=== PATIENT | female | born 1975 | race Caucasian/White ===

== ENCOUNTER → 2017-05-27 | Outpatient (CLI) | payer BC ==
--- NOTE | 2017-05-27 09:07 | XR ---
EXAMINATION TYPE: XR chest 2V DATE OF EXAM: 05/27/2017 COMPARISON: NONE HISTORY: Chest pain TECHNIQUE: Frontal and lateral views of the chest are obtained. FINDINGS: There is no focal air space opacity. No evidence for pneumothorax. No pleural effusion. The cardiac silhouette size is within normal limits. The osseous structures are grossly intact. IMPRESSION: 1. No acute cardiopulmonary process.
== END | disposition home or self-care (01) ==
LOC: RADXRMAIN 08:36
PROVIDERS: ATTEND Family Medicine
DX: R05 Cough (principal)
CPT/HCPCS: 71046

== ENCOUNTER → 2017-07-20 | Outpatient (CLI) | payer BC, OTHER ==
[2017-07-20 07:57] LABS: HCT 39.8 % (34.0-46.0); HGB 11.9 gm/dL (11.4-16.0); Hypochromasia Marked; MCHC 29.7 g/dL (31.0-37.0); MCV 77.3 fL (80.0-100.0); Mean Platelet Volume 7.5; Platelet Count 454 k/uL (150-450); RBC 5.16 m/uL (3.80-5.40); RDW 14.2 % (11.5-15.5); WBC 11.1 k/uL (3.8-10.6)
[2017-07-20 08:09] LABS: ALT 21 U/L (9-52); AST 20 U/L (14-36); Albumin 4.1 g/dL (3.5-5.0); Alkaline Phosphatase 64 U/L (38-126); Anion Gap 13 mmol/L; Blood Urea Nitrogen 15 mg/dL (7-17); Calcium 9.5 mg/dL (8.4-10.2); Carbon Dioxide 25 mmol/L (22-30); Chloride 105 mmol/L (98-107); Cholesterol 168 mg/dL (<200); Glucose 99 mg/dL (74-99); HDL Cholesterol 43 mg/dL (40-60); LDL Cholesterol,Calculated 105 mg/dL (0-99); Magnesium 1.9 mg/dL (1.6-2.3); Potassium 4.8 mmol/L (3.5-5.1); Sodium 143 mmol/L (137-145); Total Bilirubin 0.5 mg/dL (0.2-1.3); Total Protein 7.1 g/dL (6.3-8.2); Triglycerides 100 mg/dL (<150)
[2017-07-20 17:38] LABS: Folate, Serum 5.9 ng/mL; Vitamin D 25 Hydroxy 33.7 ng/mL (30.0-100.0)
[2017-07-22 06:48] LABS: Herpes simplex I and/or II IgM 0.48 INDEX (<=0.90); Herpes simplex IgG I Ab <0.01 (< or = 0.90); Herpes simplex IgG II Ab 0.08 (< or = 0.90)
== END | disposition home or self-care (01) ==
LOC: LABWHC1 07:28
PROVIDERS: ATTEND Nurse Practitioner Adult Health
DX: D64.9 Anemia, unspecified (principal); R05 Cough; R03.0 Elevated blood-pressure reading, without diagnosis of hypertension; N93.8 Other specified abnormal uterine and vaginal bleeding; N89.8 Other specified noninflammatory disorders of vagina; E83.42 Hypomagnesemia; R53.83 Other fatigue
CPT/HCPCS: 36415; 80053; 80061; 82306; 82607; 82746; 83735; 84443; 85027; 86694; 86695; 86696

== ENCOUNTER → 2017-12-02 | Outpatient (CLI) | payer BC, OTHER ==
--- NOTE | 2017-12-02 08:57 | XR ---
EXAMINATION TYPE: XR forearm RT, XR elbow complete RT DATE OF EXAM: 12/02/2017 CLINICAL HISTORY: pain TECHNIQUE: Frontal and lateral images of the right forearm are obtained. COMPARISON: None. FINDINGS: There is no acute fracture/dislocation evident. The joint spaces appear within normal limi ts. The overlying soft tissue appears unremarkable. IMPRESSION: There is no acute fracture or dislocation. ICD 10 NO FRACTURE, INITIAL EVALUATION EXAMINATION TYPE: XR forearm RT, XR elbow complete RT DATE OF EXAM: 12/02/2017 CLINICAL HISTORY: pain TECHNIQUE: Frontal, lateral and oblique images of the right elbow are obtained. COMPARISON: None. FINDINGS: There is no acute fracture/dislocation evident of the elbow. No abnormal fat pad signs ar e seen. The overlying soft tissue appears unremarkable. IMPRESSION: There is no acute fracture or dislocation of the elbow. ICD 10 NO FRACTURE, INITIAL EVALUATION
== END | disposition home or self-care (01) ==
LOC: RADXRMAIN 08:17
PROVIDERS: ATTEND Nurse Practitioner Adult Health
DX: S56.211 Strain of other flexor muscle, fascia and tendon at forearm level, right arm (principal)

== ENCOUNTER → 2018-01-06 | Outpatient (CLI) | payer BC, OTHER ==
--- NOTE | 2018-01-06 14:26 | MR ---
EXAMINATION TYPE: MR elbow RT wo con DATE OF EXAM: 01/06/2018 COMPARISON: Right elbow and forearm x-ray December 02, 2017 HISTORY: Rt. elbow pain, strain injury flexor forearm per order. Standard multiplanar, multisequence MRI departmental protocol Multiplanar, multisequence images of the right elbow were acquired. FINDINGS: Some heterogeneity consistent with red marrow reconversion is present. No suspicious edema is seen. Some mild spurring at ulnohumeral articulation is present. No suspicious joint effusion is s een. No cortical destruction is seen. Capitellum is intact without suspicious signal. There is no suspicious fluid signal seen in the lateral or medial upper condyle of the distal humerus at origins of the extensor and flexor tendons respectively. Tendons are intact. Muscle bulk is prese rved. Distal triceps tendon is intact. Distal biceps tendon is intact to proximal radial attachment. No jeannine picious muscular edema is seen. No worrisome focal fluid collection is noted. Intrinsic ligaments are felt intact. IMPRESSION: No suspicious edema identified to account for patient's symptoms.
== END | disposition home or self-care (01) ==
LOC: RADMRIMAIN 07:07
PROVIDERS: ATTEND Internal Medicine
DX: S56.211 Strain of other flexor muscle, fascia and tendon at forearm level, right arm (principal)

== ENCOUNTER 2018-02-27 01:09 | Emergency (ER) | payer BC, OTHER ==
[2018-02-27 01:19] VITALS: RESP 18; TEMP 98.1
[2018-02-27 02:38] VITALS: PULSE 81
--- NOTE | 2018-02-27 02:47 | ED ---
Abdominal Pain HPI - General Chief Complaint: Abdominal Pain Stated Complaint: bowel issue Time Seen by Provider: 02/27/18 01:21 Source: patient Mode of arrival: ambulatory Limitations: no limitations - History of Present Illness Initial Comments: This patient is a 43-year-old woman presenting to be evaluated for months of perianal pains. She states she has seen her physician also for these pains. The patient believes she is having issues related to constipation or perhaps an obstruction. She states that the pain feels like spasms and is somewhat intermittent. She states it can happen at any time of the day. When it comes on a can last for minutes to an hour. She states that it makes her feels if she has to have a bowel movement but is not able to pass any stool other than small lumps of stool. She has tried using various laxatives, stool softeners and lactulose. Patient also has had some intermittent lower abdominal cramping in the bilateral lower quadrants. She is not having any other abdominal pain. She has not had fever or chills. No nausea or vomiting. No change in urination. She states that she is having her menstrual cycle now and it seems about as usual for her. MD Complaint: abdominal pain, other (Perianal pain) Onset/Timin -: month(s) Location: LLQ, RLQ Radiation: none Migration to: no migration Severity: severe Quality: other (Spasms) Consistency: intermittent Improves With: nothing Worsens With: nothing - Related Data Previous Rx's Medication Instructions Recorded Hydrocortisone/Pramoxine 1 applic RECTAL TID #1 bottle 02/27/18 [Proctofoam-Hc 1%-1% Foam] Allergies Allergy/AdvReac Type Severity Reaction Status Date / Time No Known Allergies Allergy Verified 02/27/18 01:19 Review of Systems ROS Statement: Those systems with pertinent positive or pertinent negative responses have been documented in the HPI. ROS Other: All systems not noted in ROS Statement are negative. Constitutional: Denies: fever, chills Respiratory: Denies: cough, dyspnea Cardiovascular: Denies: chest pain, palpitations, edema Gastrointestinal: Reports: abdominal pain, constipation. Denies: nausea, vomiting, diarrhea, hematemesis, melena, hematochezia Genitourinary: Denies: dysuria, hematuria, discharge, abnormal menses Musculoskeletal: Denies: back pain Skin: Denies: rash Neurological: Denies: headache, weakness, numbness Past Medical History Past Medical History: No Reported History History of Any Multi-Drug Resistant Organisms: None Reported Past Surgical History: Tubal Ligation Past Psychological History: No Psychological Hx Reported Smoking Status: Current every day smoker Past Alcohol Use History: None Reported Past Drug Use History: None Reported General Exam Limitations: no limitations General appearance: alert, in no apparent distress, obese Head exam: Present: atraumatic, normocephalic Eye exam: Present: normal appearance. Absent: scleral icterus, conjunctival injection ENT exam: Present: normal oropharynx Respiratory exam: Present: normal lung sounds bilaterally. Absent: respiratory distress, wheezes, rales, rhonchi, stridor Cardiovascular Exam: Present: regular rate, normal rhythm, normal heart sounds. Absent: systolic murmur, diastolic murmur, rubs, gallop GI/Abdominal exam: Present: soft, normal bowel sounds. Absent: distended, tenderness, guarding, rebound, rigid, mass, pulsatile mass, hernia Rectal exam: Present: normal inspection, other (There is a small anal fissure. There is spasm of the anus, however when the patient was able to relax, there was no evident stricture, or any mass.). Absent: fecal impaction, hemorrhoids, mass, tenderness Extremities exam: Present: normal inspection, normal capillary refill. Absent: pedal edema, calf tenderness Back exam: Present: normal inspection. Absent: CVA tenderness (R), CVA tenderness (L) Neurological exam: Present: alert Skin exam: Present: warm, dry, intact, normal color. Absent: rash Course Vital Signs 02/27/18 02/27/18 02/27/18 01:14 02:37 03:28 Temperature 98.1 F Pulse Rate 86 81 81 Respiratory 18 18 18 Rate Blood Pressure 155/84 140/106 145/84 O2 Sat by Pulse 98 99 100 Oximetry Medical Decision Making - Lab Data Result diagrams: 02/27/18 02:50 02/27/18 02:50 Lab Results 02/27/18 02/27/18 02/27/18 Range/Units 02:50 02:50 02:54 WBC 10.2 (3.8-10.6) k/uL RBC 4.78 (3.80-5.40) m/uL Hgb 8.8 L (11.4-16.0) gm/dL Hct 31.2 L (34.0-46.0) % MCV 65.3 L (80.0-100.0) fL MCH 18.4 L (25.0-35.0) pg MCHC 28.1 L (31.0-37.0) g/dL RDW 16.3 H (11.5-15.5) % Plt Count 493 H (150-450) k/uL Neutrophils % 58 % Lymphocytes % 29 % Monocytes % 5 % Eosinophils % 6 % Basophils % 1 % Neutrophils # 5.9 (1.3-7.7) k/uL Lymphocytes # 2.9 (1.0-4.8) k/uL Monocytes # 0.5 (0-1.0) k/uL Eosinophils # 0.6 (0-0.7) k/uL Basophils # 0.1 (0-0.2) k/uL Hypochromasia Marked Anisocytosis Slight Microcytosis Marked Sodium 139 (137-145) mmol/L Potassium 4.3 (3.5-5.1) mmol/L Chloride 107 (98-107) mmol/L Carbon Dioxide 25 (22-30) mmol/L Anion Gap 7 mmol/L BUN 7 (7-17) mg/dL Creatinine 0.61 (0.52-1.04) mg/dL Est GFR (CKD-EPI)AfAm >90 (>60 ml/min/1.73 sqM) Est GFR (CKD-EPI)NonAf >90 (>60 ml/min/1.73 sqM) Glucose 108 H (74-99) mg/dL Calcium 9.2 (8.4-10.2) mg/dL Total Bilirubin 0.3 (0.2-1.3) mg/dL AST 18 (14-36) U/L ALT 29 (9-52) U/L Alkaline Phosphatase 66 (38-126) U/L Total Protein 6.9 (6.3-8.2) g/dL Albumin 3.7 (3.5-5.0) g/dL Amylase 51 (30-110) U/L Lipase 127 (23-300) U/L Urine Color Yellow Urine Appearance Clear (Clear) Urine pH 6.0 (5.0-8.0) Ur Specific [place] 1.011 (1.001-1.035) Urine Protein Negative (Negative) Urine Glucose (UA) Negative (Negative) Urine Ketones Negative (Negative) Urine Blood Small H (Negative) Urine Nitrite Negative (Negative) Urine Bilirubin Negative (Negative) Urine Urobilinogen <2.0 (<2.0) mg/dL Ur Leukocyte Esterase Negative (Negative) Urine RBC <1 (0-5) /hpf Urine WBC 2 (0-5) /hpf Ur Squamous Epith Cells 2 (0-4) /hpf Urine Bacteria Rare H (None) /hpf Urine Mucus Occasional H (None) /hpf Disposition Clinical Impression: Anal fissure, Anal sphincter spasm Disposition: HOME SELF-CARE Condition: Good Instructions: Anal Fissure (ED) Prescriptions: Hydrocortisone/Pramoxine [Proctofoam-Hc 1%-1% Foam] 1 applic RECTAL TID #1 bottle Is patient prescribed a controlled substance at d/c from ED?: No Referrals: Lino Rose MD [Primary Care Provider] - 1-2 days Nicolas Flores MD [STAFF PHYSICIAN] - 1-2 days
--- NOTE | 2018-02-27 02:48 | XR ---
EXAMINATION TYPE: XR KUB DATE OF EXAM: 02/27/2018 COMPARISON: NONE HISTORY: Abdominal pain TECHNIQUE: 2 views upright FINDINGS: There is no sign of intestinal obstruction or pneumoperitoneum. Fecal pattern is normal. Th ere are clips from tubal ligation. There are no pathologic calcifications over the kidneys. Lung base s are clear. IMPRESSION: Nonacute abdomen.
[2018-02-27 03:17] LABS: Anisocytosis Slight; Basophils # (A) 0.1 k/uL (0-0.2); Basophils % (A) 1 %; Eosinophils # (A) 0.6 k/uL (0-0.7); Eosinophils % (A) 6 %; HCT 31.2 % (34.0-46.0); HGB 8.8 gm/dL (11.4-16.0); Hypochromasia Marked; Lymphocytes # (A) 2.9 k/uL (1.0-4.8); Lymphocytes % (A) 29 %; MCH 18.4 pg (25.0-35.0); MCHC 28.1 g/dL (31.0-37.0); MCV 65.3 fL (80.0-100.0); Mean Platelet Volume 6.1; Microcytosis Marked; Monocytes # (A) 0.5 k/uL (0-1.0); Monocytes % (A) 5 %; Neutrophils # (A) 5.9 k/uL (1.3-7.7); Neutrophils % (A) 58 %; Platelet Count 493 k/uL (150-450); RBC 4.78 m/uL (3.80-5.40); RDW 16.3 % (11.5-15.5); WBC 10.2 k/uL (3.8-10.6)
[2018-02-27 03:18] LABS: ALT 29 U/L (9-52); AST 18 U/L (14-36); Albumin 3.7 g/dL (3.5-5.0); Alkaline Phosphatase 66 U/L (38-126); Amylase 51 U/L (30-110); Anion Gap 7 mmol/L; Blood Urea Nitrogen 7 mg/dL (7-17); Calcium 9.2 mg/dL (8.4-10.2); Carbon Dioxide 25 mmol/L (22-30); Chloride 107 mmol/L (98-107); Glucose 108 mg/dL (74-99); Lipase 127 U/L (23-300); Potassium 4.3 mmol/L (3.5-5.1); Sodium 139 mmol/L (137-145); Total Bilirubin 0.3 mg/dL (0.2-1.3); Total Protein 6.9 g/dL (6.3-8.2)
[2018-02-27 03:22] LABS: Appearance,Urine Clear (Clear); Bacteria,Urine Rare /hpf; Bilirubin,Urine Negative (Negative); Blood,Urine Small (Negative); Color,Urine Yellow; Glucose,Urine (UA) Negative (Negative); Ketones,Urine Negative (Negative); Leukocyte Esterase,Urine Negative (Negative); Mucus,Urine Occasional /hpf; Nitrite,Urine Negative (Negative); Protein,Urine Negative (Negative); RBC,Urine <1 /hpf (0-5); Specific Gravity,Urine 1.011 (1.001-1.035); Squamous Epithelial Cell,Urine 2 /hpf (0-4); Urobilinogen,Urine <2.0 mg/dL (<2.0); WBC,Urine 2 /hpf (0-5)
[2018-02-27 03:29] VITALS: BP 145/84
== END 2018-02-27 03:54 | disposition home or self-care (01) ==
LOC: SUPCPDRO 01:09 → EC 01:09
DX: K60.2 Anal fissure, unspecified (principal); K59.4 Anal spasm; R10.31 Right lower quadrant pain; R10.32 Left lower quadrant pain; F17.200 Nicotine dependence, unspecified, uncomplicated
CPT/HCPCS: 36415; 74018; 80053; 81001; 82150; 83690; 85025; 99284

== ENCOUNTER 2018-06-24 05:40 | Inpatient (IN) | payer OTHER ==
--- NOTE | 2018-06-24 05:45 | ED ---
General Adult HPI - General Stated complaint: Abd pain Time Seen by Provider: 06/24/18 05:45 - History of Present Illness Initial comments: Dayana is a 43-year-old female who presents to emergency department today via EMS for evaluation of sudden onset of bilateral lower quadrant abdominal pain. Patient reports that this morning she was straining to have a bowel movement, she was unable to have a bowel movement when she was overcome with abdominal p ain. She reports the pain was so severe she felt the ground and had to crawl to the living room where she called 911. Patient reports she is dull with intermittent rectal and abdominal pain for a number of months, she reports that his been diagnosed with rectal fissures in the past and also has chronic heavy vaginal bleeding and is scheduled to have a hysterectomy on August 31 of this year due to chronic anemia due to menstrual bleeding. Patient reports that this morning the pain is significantly more severe than usual and became unbearable which prompted her to come to the ER for evaluation. Pain is not associated with any nausea or vomiting. The pain was sudden in onset occurred while having a bowel movement. She reports her last bowel movement was 2-3 days ago was normal in color, consistency. - Related Data Home Medications Medication Instructions Recorded Confirmed Biotin 5 mg PO DAILY 05/15/18 06/24/18 Meloxicam 15 mg PO DAILY 05/15/18 06/24/18 Ibuprofen [Motrin] 800 mg PO Q8H 06/24/18 06/24/18 Allergies Allergy/AdvReac Type Severity Reaction Status Date / Time No Known Allergies Allergy Verified 06/24/18 07:30 Review of Systems ROS Statement: Those systems with pertinent positive or pertinent negative responses have been documented in the HPI. ROS Other: All systems not noted in ROS Statement are negative. Past Medical History Past Medical History: No Reported History History of Any Multi-Drug Resistant Organisms: None Reported Past Surgical History: Tubal Ligation Smoking Status: Current every day smoker General Exam - General Exam Comments Initial Comments: Physical Exam GENERAL: Patient appears uncomfortable HENT: Normocephalic, Atraumatic. EYES: PERRL, EOMI PULMONARY: Unlabored respirations. No audible rales rhonchi or wheezing was noted. CARDIOVASCULAR: There is a regular rate and rhythm without any murmurs gallops or rubs. ABDOMEN: Soft NABS tenderness to palpation in all quadrants, most prominent in bilateral lower quadrants SKIN: Skin is clear with no lesions or rashes and otherwise unremarkable. : Deferred NEUROLOGIC: Patient is alert and oriented x3. Moving all extremities spontaneously MUSCULOSKELETAL: Normal extremities with adequate strength and full range of motion. No lower extremity swelling or edema. No calf tenderness. PSYCHIATRIC: Normal psychiatric evaluation. Limitations: no limitations Course Vital Signs 06/24/18 05:44 Temperature 98.2 F Pulse Rate 83 Respiratory 20 Rate Blood Pressure 122/79 O2 Sat by Pulse 98 Oximetry Medical Decision Making - Medical Decision Making The patient was seen and evaluated history is obtained from the patient and re view of medical record for patient presented with acute abdominal pain relieved somewhat with IV fentanyl and route to the hospital. Physical exam revealed diffuse abdominal tenderness without peritoneal signs rectal exam was unremarkable signs of rectal fissure or rectal prolapse Labs and imaging were ordered Labs with significant abnormalities including profound leukocytosis, hemoglobin is improving to 9.5 CT scan findings have multiple significant abnormalities as noted in the report. There is concern for possible with metastatic disease as well as acute colitis. IV antibiotics were ordered for treatment of colitis Computed tomography scan results were discussed with the patient I advised the patient that she will need to undergo further testing for definitive diagnosis she will be admitted to the hospital for pain management IV antibiotics and further evaluation. Patient expressed understanding of this. Patient care was discussed with Dr. Bah of the [facility] who accepts admission. - Lab Data Result diagrams: 06/24/18 05:53 06/24/18 05:53 Lab Results 06/24/18 06/24/18 Range/Units 05:53 05:53 WBC 21.4 H (3.8-10.6) k/uL RBC 4.17 (3.80-5.40) m/uL Hgb 9.5 L (11.4-16.0) gm/dL Hct 31.3 L (34.0-46.0) % MCV 75.1 L D (80.0-100.0) fL MCH 22.7 L (25.0-35.0) pg MCHC 30.2 L (31.0-37.0) g/dL RDW 23.8 H (11.5-15.5) % Plt Count 708 H (150-450) k/uL Neutrophils % 71 % Lymphocytes % 22 % Monocytes % 4 % Eosinophils % 1 % Basophils % 0 % Neutrophils # 15.1 H (1.3-7.7) k/uL Lymphocytes # 4.6 (1.0-4.8) k/uL Monocytes # 0.9 (0-1.0) k/uL Eosinophils # 0.3 (0-0.7) k/uL Basophils # 0.1 (0-0.2) k/uL Hypochromasia Marked Anisocytosis Moderate Microcytosis Marked Sodium 135 L (137-145) mmol/L Potassium 5.4 H (3.5-5.1) mmol/L Chloride 102 (98-107) mmol/L Carbon Dioxide 23 (22-30) mmol/L Anion Gap 10 mmol/L BUN 13 (7-17) mg/dL Creatinine 1.07 H (0.52-1.04) mg/dL Est GFR (CKD-EPI)AfAm 73 (>60 ml/min/1.73 sqM) Est GFR (CKD-EPI)NonAf 64 (>60 ml/min/1.73 sqM) Glucose 136 H (74-99) mg/dL Calcium 9.2 (8.4-10.2) mg/dL Total Bilirubin 0.6 (0.2-1.3) mg/dL AST 20 (14-36) U/L ALT 27 (9-52) U/L Alkaline Phosphatase 96 (38-126) U/L Total Protein 6.6 (6.3-8.2) g/dL Albumin 3.2 L (3.5-5.0) g/dL Amylase <30 L (30-110) U/L Lipase 45 (23-300) U/L Disposition Clinical Impression: Abdominal pain, Colitis, Leukocytosis, Chronic anemia Disposition: ADMITTED IP TO THIS [facility] Condition: Serious Is patient prescribed a controlled substance at d/c from ED?: No Referrals: Lino Rose MD [Primary Care Provider] - 1-2 days
[2018-06-24] MEDS ORDERED: SODIUM CHLORIDE 0.9% 1,000 ML IV STA (05:57)
[2018-06-24 06:16] LABS: Anisocytosis Moderate; Basophils # (A) 0.1 k/uL (0-0.2); Basophils % (A) 0 %; Eosinophils # (A) 0.3 k/uL (0-0.7); Eosinophils % (A) 1 %; HCT 31.3 % (34.0-46.0); HGB 9.5 gm/dL (11.4-16.0); Hypochromasia Marked; Lymphocytes # (A) 4.6 k/uL (1.0-4.8); Lymphocytes % (A) 22 %; MCH 22.7 pg (25.0-35.0); MCHC 30.2 g/dL (31.0-37.0); Mean Platelet Volume 7.2; Microcytosis Marked; Monocytes # (A) 0.9 k/uL (0-1.0); Monocytes % (A) 4 %; Neutrophils # (A) 15.1 k/uL (1.3-7.7); Neutrophils % (A) 71 %; Platelet Count 708 k/uL (150-450); RBC 4.17 m/uL (3.80-5.40); RDW 23.8 % (11.5-15.5); WBC 21.4 k/uL (3.8-10.6)
[2018-06-24 06:24] LABS: Albumin 3.2 g/dL (3.5-5.0); Anion Gap 10 mmol/L; Calcium 9.2 mg/dL (8.4-10.2); Carbon Dioxide 23 mmol/L (22-30); Chloride 102 mmol/L (98-107); Glucose 136 mg/dL (74-99); Lipase 45 U/L (23-300); Sodium 135 mmol/L (137-145); Total Bilirubin 0.6 mg/dL (0.2-1.3); Total Protein 6.6 g/dL (6.3-8.2)
[2018-06-24 06:27] LABS: ALT 27 U/L (9-52); AST 20 U/L (14-36); Alkaline Phosphatase 96 U/L (38-126); Blood Urea Nitrogen 13 mg/dL (7-17); Potassium 5.4 mmol/L (3.5-5.1)
[2018-06-24 06:28] LABS: Amylase <30 U/L (30-110)
[2018-06-24 06:30] LABS: MCV 75.1 fL (80.0-100.0)
[2018-06-24] MEDS ORDERED: MORPHINE SULFATE 4 MG/ML SYRINGE IVP STA (06:57)
[2018-06-24] MEDS ORDERED: metroNIDAZOLE-NS PMX 500 MG in SALINE 1 100ML.BAG IVPB STA (07:16)
--- NOTE | 2018-06-24 07:19 | CT ---
EXAM: CT Abdomen and Pelvis With Intravenous Contrast CLINICAL HISTORY: abdominal pain TECHNIQUE: Axial computed tomography images of the abdomen and pelvis with intravenous contrast. DLP is 1072.5 mGy-cm. This CT exam was performed using one or more of the following dose reduction techniques: automated exposure control, adjustment of the mA and/or kV according to patient size, and/or use of iterative reconstruction technique. COMPARISON: No relevant prior studies available. FINDINGS: Lung bases: Unremarkable. No mass. No consolidation. ABDOMEN: Liver: There is an indeterminate hypoattenuating structure in the superior segment of the right lobe of the liver (segment 7) measuring 2.6 x 2.8 x 2.3 cm without significant alteration in appearance on delayed phase imaging. Gallbladder and bile ducts: Unremarkable. No calcified stones. No ductal dilation. Pancreas: Unremarkable. No mass. No ductal dilation. Spleen: Unremarkable. No splenomegaly. Adrenals: Unremarkable. No mass. Kidneys and ureters: There is mild left hydroureteronephrosis with distention of the ureter to the level of the left pelvic wall mass. Stomach and bowel: There is abnormal mucosal thickening of the sigmoid colon with a somewhat enhancing eccentric component in the right mid pelvis (series 201; images 70-75). There is some mucosal prominence of several small bowel loops with some mesenteric edema and regional fluid in the mid to inferior abdomen. This is presumably enteritis from free fluid. No high-grade bowel obstruction is identified at this time. PELVIS: Appendix: No findings to suggest acute appendicitis. Bladder: Unremarkable. No mass. Reproductive: Postsurgical changes consistent with prior tubal ligation. ABDOMEN and PELVIS: Intraperitoneal space: There is a soft tissue density extending superiorly from the abnormal sigmoid colon to involve the adjacent distal mesentery (series 201; images 56-64). The soft tissue mass measures approximately 2.6 x 3.5 x 5 cm. There is a small amount of free fluid in the pelvis which is not to be reactive. Retroperitoneal space: There is heterogeneous abnormal soft tissue density involving the left lateral extraperitoneal pelvic wall which displaces the uterus anteriorly and the distal rectosigmoid colon to the right and encases the regional lateral pelvic vasculature (series 201; images 70-84) measuring approximately 5.6 x 4.8 x 5.7 cm. Bones/joints: No acute fracture. No dislocation. Soft tissues: Overlying soft tissues are unremarkable.. Vasculature: The left external iliac artery is adjacent to but does not appear to be encased by the soft tissue mass.. Lymph nodes: Nonspecific left periaortic lymph nodes are noted measuring up to 8 mm in short axis diameter. There is an enlarged lymph node posterior to the left external iliac artery measuring 13 mm in short axis diameter. IMPRESSION: 1. There is abnormal mucosal thickening of the sigmoid colon with a somewhat enhancing eccentric component in the right mid pelvis. This may represent inflammatory or infectious colitis. However, findings are concerning for an underlying colonic mass lesion. Further evaluation with nonemergent endoscopic evaluation should be considered , as clinically appropriate. 2. There is a soft tissue density extending superiorly from the abnormal sigmoid colon to involve the adjacent distal mesentery. The soft tissue mass measures approximately 2.6 x 3.5 x 5 cm. Primary consideration is metastatic extension of a colonic mass to involve the distal mesentery. 3. There is heterogeneous abnormal soft tissue density involving the left lateral extraperitoneal pelvic wall which displaces the uterus anteriorly and the distal rectosigmoid colon to the right and encases the regional lateral pelvic vasculature measuring approximately 5.6 x 4.8 x 5. 7 cm. Primary consideration is slightly necrotic pelvic metastatic lymphadenopathy. The mass lies immediately posterior to the left adnexa. Differential consideration includes primary colonic mass with pelvic lymphadenopathy or, less likely, pelvic metastatic lymphadenopathy from left ovarian source with involvement of the adjacent colon and distal mesentery. 4. There is mild left hydroureteronephrosis with distention of the ureter to the level of the left pelvic wall mass. This is presumed related from mass effect upon the left ureter. 5. There is an indeterminate hypoattenuating structure in the superior segment of the right lobe of the liver (segment 7) measuring 2.6 x 2.8 x 2.3 cm without significant alteration in appearance on delayed phase imaging. This may represent an atypical hemangioma. However, the diagnosis of exclusion is metastatic disease from the pelvic mass.
[2018-06-24] MEDS ORDERED: NALOXONE 0.4 MG/ML 1 ML VIAL IV PRN (07:47)
[2018-06-24] MEDS: MORPHINE SULFATE 4 MG/ML SYRINGE IV PRN (08:41)
[2018-06-24] MEDS: HYDROmorphone 0.5 MG/0.5 ML SYRINGE IVP PRN ×4 (11:40→21:42)
[2018-06-24] MEDS ORDERED: BISACODYL 10 MG SUPP RECTAL STA (12:01)
[2018-06-24] MEDS ORDERED: INSULIN REGULAR 100 UNIT/ML VIAL IV ONE ×2 (12:03→22:30)
[2018-06-24] MEDS ORDERED: DEXTROSE 50% SYRINGE 50 ML IVP STA ×2 (12:03→22:30)
[2018-06-24 12:15] LABS: Appearance,Urine Clear (Clear); Bilirubin,Urine Negative (Negative); Blood,Urine Negative (Negative); Color,Urine Yellow; Glucose,Urine (UA) Negative (Negative); Ketones,Urine Trace (Negative); Leukocyte Esterase,Urine Negative (Negative); Mucus,Urine Rare /hpf; Nitrite,Urine Negative (Negative); Protein,Urine 1+ (Negative); Squamous Epithelial Cell,Urine 2 /hpf (0-4); Urobilinogen,Urine <2.0 mg/dL (<2.0); WBC,Urine 6 /hpf (0-5)
[2018-06-24 12:17] LABS: Specific Gravity,Urine >1.050 (1.001-1.035)
--- NOTE | 2018-06-24 12:55 | XR ---
EXAMINATION TYPE: XR abdomen acute w cxr , ONE VIEW DATE OF EXAM ORDERED: 06/24/2018 HISTORY: evaluate for any air under diaphragm, . COMPARISON: None. FINDINGS: There is a questionable 8 mm nodule in the right upper lobe. There is atelectatic change p resent at the lung bases. The heart is mildly enlarged. Pleural spaces are clear. No definite air is seen under the diaphragm. IMPRESSION: 1. NO FREE AIR IDENTIFIED. 2. MILD CARDIOMEGALY. 3. BIBASILAR AIRSPACE DISEASE. 4. QUESTIONABLE RIGHT-SIDED PULMONARY NODULE.
[2018-06-24 13:47] LABS: Amylase <30 U/L (30-110); LDH 438 U/L (313-618); Lipase 21 U/L (23-300)
[2018-06-24] MEDS: SODIUM CHLORIDE 0.9% 1,000 ML IV SCH ×2 (14:37→14:40)
[2018-06-24] MEDS: PANTOPRAZOLE 40 MG TABLET PO SCH ×2 (14:40→16:59)
--- NOTE | 2018-06-24 15:18 | P.HPIM ---
History of Present Illness H&P Date: 06/24/18 Chief Complaint: lower abd pain 43-year-old female with no significant past medical history. Patient presented to the ER via ambulance today due to sudden onset worsening of lower abdominal pain. Patient reported that she woke up this morning went to the bathroom due to raymundo ving an urge to pass a bowel movement with lower abdominal pain however while she is on the toilet she had a severe attack of lower abdominal sharp pain 10 out of 10 in severity bilateral lower quadrant radiating to the rest of the belly no associated nausea or vomiting and then she fell off the toilet and controlled asking for help due to severe pain and called ambulance and brought to the hospital. She reports long history of off and on lower abdominal pain which has been going on for 6 months prior to that she's been having constipation over the past year she passes bowel movements once to twice a week only when she drinks prune juice. She tried everything over the son for constipation and nothing helped one-time she tried to get Fleet enema from [id number] and that barely helped. She also reports 100 pound weight loss over the past 2 years. She has been following up with GI service and [facility] for anemia and possibility of uterine fibroids. Patient reports vaginal bleeding and bloody bowel movements over the past 1 month which was thought to be due to uterine fibroids and side effects of Mobic. For which patient's she has been receiving iron infusions for severe anemia. Otherwise patient denies any fevers or chills denies any nausea or vomiting. She denies any chest pain or trouble breathing however today she is reporting new onset lower rib pain along with a diffused abdominal pain. Patient doesn't take any medications at home except Mobic and ibuprofen for lower abdominal pain. In the emergency department computed tomography scan of the abdomen was performed which showed multiple abdominal masses related to the colon with suspicion of malignancy and metastases to the liver. And possible colitis. Chest x-ray showed suspicion of pulmonary nodule. Please refer to CAT scan report for full results. Labs reflected acute kidney injury with hyperkalemia elevated white count and microcytic anemia Review of Systems Pertinent positives as noted in HPI. All other systems were reviewed and are negative Past Medical History Past Medical History: No Reported History Additional Past Medical History / Comment(s): microcytic anemia History of Any Multi-Drug Resistant Organisms: None Reported Past Surgical History: Tubal Ligation Smoking Status: Current every day smoker - Past Family History Mother Family Medical History: Congestive Heart Failure (CHF), Diabetes Mellitus Father Family Medical History: Diabetes Mellitus Additional Family Medical History / Comment(s): lung cancer in aunt, who is a smoker Medications and Allergies Home Medications Medication Instructions Recorded Confirmed Type Biotin 5 mg PO DAILY 05/15/18 06/24/18 History Meloxicam 15 mg PO DAILY 05/15/18 06/24/18 History Ibuprofen [Motrin] 800 mg PO Q8H 06/24/18 06/24/18 History Allergies Allergy/AdvReac Type Severity Reaction Status Date / Time No Known Allergies Allergy Verified 06/24/18 07:30 Physical Exam Vitals: Vital Signs Temp Pulse Resp BP Pulse Ox 06/24/18 08:07 98.1 F 70 16 119/70 98 06/24/18 05:44 98.2 F 83 20 122/79 98 Intake and Output 06/23/18 06/24/18 06/24/18 22:59 06:59 14:59 Other: Weight 87.09 kg Constitutional: Patient in mild to moderate distress from lower abdominal pain , conversant, cooperative Eyes: Anicteric sclerae, moist conjunctiva, no lid-lag Pupils equal round reactive to light ENMT: NC/AT Oropharynx clear, no erythema, exudates Neck: Supple, FROM, no masses, or JVD No carotid bruits No thyromegaly Lungs: Clear to auscultation Clear to percussion Normal respiratory effort, no accessory muscle use Cardiovascular: Heart regular in rate and rhythm, No murmurs, gallops, or rubs No peripheral edema Abdominal: Abdomen rigid due to voluntary guarding especially on the lower part of the belly, tenderness diffusely no rebound tenderness Bowel sounds sluggish No palpable hepatomegaly, or splenomegaly No palpable superficial mass No abdominal wall hernia noted Skin: Normal temperature, tone, texture, turgor No induration No subcutaneous nodules No rash, lesions No ulcers Extremities: No digital cyanosis No clubbing Pedal pulses intact and symmetrical Radial pulses intact and symmetrical No calf tenderness Psychiatric: Alert and oriented to person, place and time Appropriate affect fair judgment Neuro Muscles Strength 5/5 in all 4 extremities Sensation to light touch grossly present throughout Cranial nerves II-XII grossly intact No focal sensory deficits Lymphatics: no palpable cervical or supraclavicular , or inguinal lymph nodes Results CBC & Chem 7: 06/24/18 05:53 06/24/18 05:53 Labs: Abnormal Lab Results - Last 24 Hours (Table) 06/24/18 06/24/18 Range/Units 05:53 05:53 WBC 21.4 H (3.8-10.6) k/uL Hgb 9.5 L (11.4-16.0) gm/dL Hct 31.3 L (34.0-46.0) % MCV 75.1 L D (80.0-100.0) fL MCH 22.7 L (25.0-35.0) pg MCHC 30.2 L (31.0-37.0) g/dL RDW 23.8 H (11.5-15.5) % Plt Count 708 H (150-450) k/uL Neutrophils # 15.1 H (1.3-7.7) k/uL Sodium 135 L (137-145) mmol/L Potassium 5.4 H (3.5-5.1) mmol/L Creatinine 1.07 H (0.52-1.04) mg/dL Glucose 136 H (74-99) mg/dL Albumin 3.2 L (3.5-5.0) g/dL Amylase <30 L (30-110) U/L Assessment and Plan Assessment: 43-year-old female with no significant past medical history except for microcytic anemia admitted as inpatient with anticipated length of stay more than 48 hours due to severe sudden onset worsening of her lower abdominal pain CAT scan showed multiple abdominal masses with possible metastases to the liver suspicious for malignancy. Labs showed microcystic anemia. Patient admitted for further evaluation and care, and pain control. Severe intractable abdominal pain due to the following , Colitis, mesentery mass lesion, Left lateral extraperitoneal pelvic mass with mass effect over the uterus distal rectosigmoid with possible necrotic pelvic metastasis lymphadenopathy, masses immediately behind the left and Anexsia Plan: severe intractable abd pain due to Differential diagnosis so far primary colonic mass with pelvic lymphadenopathy versus pelvic metastatic lymphadenopathy from left ovarian cancer with involvement of adjacent colon and distal mesentery, Hypoattenuating lesions in the liver which may represent metastases to the liver versus hemangioma Possible pulmonary nodule on chest x-ray Pain control with opiates Enema for bowel movement Check acute abdominal series rule out air under diaphragm due to worsening of abdominal pain Check lipase and amylase and LDH and d-dimer Oncology consult GI consult [facility] consult Patient will require tissue biopsy for diagnosis Patient will also require CAT scan of the head and chest for staging evaluation of extent of metastasis assuming underlying condition is malignancy Chronic microcytic anemia Monitor hemoglobin Patient receiving IV iron infusions outpatient PPI Acute kidney injury and hyperkalemia Evidence of left mild hydronephrosis IV insulin and D50 to help lower her potassium Check postal worker potassium closely IV fluid hydration Avoid nephrotoxic meds Leukocytosis could be reactive versus underlying colitis Continue with Flagyl Monitor vital signs Reactive thrombocytosis Continue to monitor DVT prophylaxis heparin subcu 3 times a day Surrogate decision-maker: Patient mother CODE STATUS:*Full code Discussed with: Patient, ER, RN Anticipated discharge: 48-[address]: Pending clinical course possibly home A total of 80 minutes was spent on the care of this complex patient more than 50% of the time was spent in counseling and care coordination.
--- NOTE | 2018-06-24 15:51 | P.OBCN ---
History of Present Illness Consult date: 06/24/18 Chief complaint: Abdominal pain History of present illness: This patient is a pleasant 43-year-old 4 para 4 female who I've been asked to see in regards to abdominal pain and abnormal CAT scan. Patient's past gynecologic history is such that she's had a long-standing history of menorrhagia and had a endometrial ablation done by Dr. Versa. This apparently was in 2013. Patient has subsequent continued to have menorrhagia and secondary anemia and therefore was referred to Dr. Sherman. Dr. Sherman saw this patient approximately 2 months ago and at that time had an ultrasound performed which showed a 3.1 cm uterine fibroid and a benign appearing 3.7 cm right ovarian cyst. The left ovary was not visualized. Patient and Dr. Sherman apparently talked about a possible hysterectomy secondary to the menorrhagia. Separately the patient has also been complaining of abdominal pain since approximately February of this last year. Patient states that she's been having a lot of abdominal discomfort and "" bowel issues" and has seen two skiver uppers or linings. Evaluation apparently has been negative. Patient states that earlier this mo rning she was sitting on the commode trying to have a bowel movement had sudden abdominal pain and therefore called EMS. Evaluation here in the emergency department shows abnormal mucosal thickening of the sigmoid colon with an adjacent soft tissue mass approximately 5 cm. She also has a left lateral retroperitoneal mass that is approximately 5.6 cm. Radiologist's impression is this appeared to be primary colonic mass with pelvic or mesenteric lymphadenopathy however they could not rule out ovarian source. Patient states she did have which she thought was the flu earlier this week with temperatures at home although she is afebrile here. Review of Systems Constitutional: Reports as per HPI Gastrointestinal: Reports as per HPI, Reports abdominal pain, Reports change in bowel habits, Reports constipation Genitourinary: Reports menorrhagia Menstruation: Reports period heavy Past Medical History Past Medical History: No Reported History Additional Past Medical History / Comment(s): microcytic anemia History of Any Multi-Drug Resistant Organisms: None Reported Past Surgical History: Tubal Ligation Additional Past Surgical History / Comment(s): Patient has had an endometrial ablation in [address] Veras. Past Anesthesia/Blood Transfusion Reactions: No Reported Reaction Smoking Status: Current every day smoker - Past Family History Mother Family Medical History: Congestive Heart Failure (CHF), Diabetes Mellitus Father Family Medical History: Diabetes Mellitus Additional Family Medical History / Comment(s): lung cancer in aunt, who is a smoker Medications and Allergies Home Medications Medication Instructions Recorded Confirmed Type Biotin 5 mg PO DAILY 05/15/18 06/24/18 History Meloxicam 15 mg PO DAILY 05/15/18 06/24/18 History Ibuprofen [Motrin] 800 mg PO Q8H 06/24/18 06/24/18 History Allergies Allergy/AdvReac Type Severity Reaction Status Date / Time No Known Allergies Allergy Verified 06/24/18 07:30 Exam Vital Signs Temp Pulse Pulse Resp BP BP Pulse Ox 06/24/18 13:53 114 H 20 06/24/18 10:40 98 F 114 H 20 115/64 96 06/24/18 09:18 98.1 F 104 H 16 102/70 97 06/24/18 08:07 98.1 F 70 16 119/70 98 06/24/18 05:44 98.2 F 83 20 122/79 98 Intake and Output 06/24/18 06/24/18 06/24/18 06:59 14:59 22:59 Other: Weight 87.09 kg Results Ultrasound on April 21 shows a 3.1 cm uterine fibroid and a 3. centimeter cyst of the right ovary. Left ovary was not visualized. Adnexa were considered normal. Result Diagrams: 06/24/18 05:53 06/24/18 05:53 Abnormal Lab Results - Last 24 Hours (Table) 06/24/18 06/24/18 06/24/18 Range/Units 05:53 05:53 12:03 WBC 21.4 H (3.8-10.6) k/uL Hgb 9.5 L (11.4-16.0) gm/dL Hct 31.3 L (34.0-46.0) % MCV 75.1 L D (80.0-100.0) fL MCH 22.7 L (25.0-35.0) pg MCHC 30.2 L (31.0-37.0) g/dL RDW 23.8 H (11.5-15.5) % Plt Count 708 H (150-450) k/uL Neutrophils # 15.1 H (1.3-7.7) k/uL D-Dimer (<0.60) mg/L FEU Sodium 135 L (137-145) mmol/L Potassium 5.4 H (3.5-5.1) mmol/L Creatinine 1.07 H (0.52-1.04) mg/dL Glucose 136 H (74-99) mg/dL Albumin 3.2 L (3.5-5.0) g/dL Amylase <30 L (30-110) U/L Lipase (23-300) U/L Ur Specific Allen >1.050 H (1.001-1.035) Urine Protein 1+ H (Negative) Urine Ketones Trace H (Negative) Urine WBC 6 H (0-5) /hpf Urine Mucus Rare H (None) /hpf 06/24/18 06/24/18 Range/Units 13:22 13:22 WBC (3.8-10.6) k/uL Hgb (11.4-16.0) gm/dL Hct (34.0-46.0) % MCV (80.0-100.0) fL MCH (25.0-35.0) pg MCHC (31.0-37.0) g/dL RDW (11.5-15.5) % Plt Count (150-450) k/uL Neutrophils # (1.3-7.7) k/uL D-Dimer 5.18 H (<0.60) mg/L FEU Sodium (137-145) mmol/L Potassium (3.5-5.1) mmol/L Creatinine (0.52-1.04) mg/dL Glucose (74-99) mg/dL Albumin (3.5-5.0) g/dL Amylase <30 L (30-110) U/L Lipase 21 L (23-300) U/L Ur Specific Allen (1.001-1.035) Urine Protein (Negative) Urine Ketones (Negative) Urine WBC (0-5) /hpf Urine Mucus (None) /hpf Assessment and Plan Assessment: This is a pleasant 43-year-old 4 para 4 female with several month histor y of mid abdominal pain and gastrointestinal symptomatology. Patient did have a pelvic ultrasound done on April 21 that showed a 3.1 cm fibroid and a 3.7 cm right ovarian cyst, however no concerning pathology at that time. Patient at this time localizes her pain to the mid to upper abdomen. CAT scan findings are significantly concerning for a gastrointestinal etiology although you cannot 100% rule out ovarian etiology. There is no evidence of ascites. Patient's CAT scan also is concerning for possible inflammatory colitis. White blood cell count was elevated as well to 21 which is not typical of an ovarian source. From a gynecologic standpoint, my recommendations are to repeat her transvaginal ultrasound and to check a CA-125. Unfortunately with the inflammatory processes very possible the CA-125 may be elevated nonspecifically. I recommended that a general surgical consult be done as well as a gastrointestinal consultation. Patient most likely will need a colonoscopy to rule out gastrointestinal etiology. If it is felt that this is not a gastrointestinal source that most definitely she'll need to be referred to [facility] oncologist for further evaluation and treatment. (1) Abdominal pain Current Visit: Yes Status: Acute Code(s): R10.9 - UNSPECIFIED ABDOMINAL PAIN SNOMED Code(s): 84563591 (2) Chronic anemia Current Visit: Yes Status: Acute Code(s): D64.9 - ANEMIA, UNSPECIFIED SNOMED Code(s): 535583860
[2018-06-24 16:20] LABS: INR 1.2 (<1.2); Partial Thromboplastin Time 24.7 sec (22.0-30.0); Prothrombin Time 12.2 sec (9.0-12.0)
[2018-06-24] MEDS: HEPARIN SODIUM,PORCINE 5,000 UNIT/ML 1 ML VIAL SQ SCH ×2 (16:56→23:28)
[2018-06-24] MEDS: metroNIDAZOLE-NS PMX 500 MG in SALINE 1 100ML.BAG IVPB SCH ×2 (17:07→23:01)
--- NOTE | 2018-06-24 17:26 | US ---
EXAMINATION TYPE: US pelvic complete DATE OF EXAM: 06/24/2018 COMPARISON: NONE CLINICAL HISTORY: History of uterine fibroid/ovarian cyst. Abnormal CT, patient states right ov cyst seen in April, , tubal ligation TECHNIQUE: TA. Transabdominal sonographic images of the pelvis were acquired. Educated patient th at a TV exam would give us more information but due to the extreme pain she is in she refused at this time. / Date of LMP: 05/29/2018 EXAM MEASUREMENTS: Uterus: 12.0 x 7.1 x 6.9cm Endometrial Stripe: 0.9 cm Right Ovary: 8.9 x 4.6 x 7.7 cm Left Ovary: 3.9 x 4.7 x 4.4 cm 1. Uterus: Anteverted wnl 2. Endometrium: wnl 3. Right Ovary: area that appears to be ovary is very large with 2.6cm cyst, otherwise this lesion i s obscuring/mimicking ovary altogether 4. Left Ovary: 2.8 x 2.5 x 1.9cm irregular hypoechoic lesion seen 5. Bilateral Adnexa: wnl 6. Posterior cul-de-sac: wnl left lateral pelvic wall mass seen on CT is not appreciated by ultrasound. IMPRESSION: Left ovary upper limit of normal size. Abnormal enlarged right ovary. 2.8 x 1.9 cm right ovarian cyst. Follow-up is recommended. This patient had a CT scan today that appears to show inflammatory changes in the pelvis with fat str anding bilaterally and fluid. Ovarian tumor not excluded.
[2018-06-24] MEDS: SODIUM CHLORIDE 0.9% 500 ML 500 ML IV SCH ×3 (21:38→23:18)
[2018-06-24] MEDS: ACETAMINOPHEN TAB 325 MG TAB PO PRN (21:39)
[2018-06-24 22:03] LABS: Anisocytosis Moderate; HCT 33.3 % (34.0-46.0); HGB 9.8 gm/dL (11.4-16.0); Hypochromasia Marked; MCH 22.9 pg (25.0-35.0); MCHC 29.3 g/dL (31.0-37.0); MCV 77.9 fL (80.0-100.0); Mean Platelet Volume 7.1; Microcytosis Moderate; Platelet Count 748 k/uL (150-450); RBC 4.28 m/uL (3.80-5.40); RDW 22.5 % (11.5-15.5); WBC 24.5 k/uL (3.8-10.6)
[2018-06-24 22:05] LABS: Calcium 9.5 mg/dL (8.4-10.2); Potassium 5.8 mmol/L (3.5-5.1)
[2018-06-24 22:11] LABS: Anion Gap 12 mmol/L; Blood Urea Nitrogen 17 mg/dL (7-17); Calcium 8.7 mg/dL (8.4-10.2); Carbon Dioxide 21 mmol/L (22-30); Chloride 100 mmol/L (98-107); Glucose 148 mg/dL (74-99); Sodium 133 mmol/L (137-145)
[2018-06-24 22:25] LABS: Potassium 6.1 mmol/L (3.5-5.1)
[2018-06-24] MEDS ORDERED: SODIUM POLYSTYRENE SULFONATE 15 GM/60 ML BOTTLE PO STA (22:30)
--- NOTE | 2018-06-24 22:53 | P.SEPSIS ---
Sepsis - Sepsis Sepsis Focused Exam #1 Sepsis Focused Exam Date: 06/24/18 Sepsis Focused Exam Time: 22:30 Sepsis Focused Exam Complete: Yes Vital Signs & RN Notes Reviewed: Yes Capillary Refill: < 2 Seconds: Fingers, Toes Peripheral Pulses: Normal: Radial (R), Radial (L), Posterior Tibialis (R), Posterior Tibialis (L) Skin Color: Normal for Patient Respiratory Exam: rales Cardiovascular Exam: tachycardia Cardiovascular Exam Comment: S1S2 tachy without murmur Assessment and Plan: 1. Sepsis with likely source of colitis although SIRS criteria and lactic acid elevation may relate to pain and malignancy - 2 L bolus ordered, and IVF increased to 150 cc/hr - lactic acid resulted at 2.7 repeat in 4 hours - add rocephin to flagyl - blood cultures 2. Hyperkalemia - insulin, glucose - Tele - kayexelate - strict I and O - repeat labs in 4 hours - Transfer to [facility] care
[2018-06-24] MEDS ORDERED: CALCIUM GLUCONATE 1 GM in SODIUM CHLORIDE 0.9% 100 ML IVPB ONE (23:00)
[2018-06-24 23:14] LABS: Glucose,Whole Blood 145 mg/dL (75-99)
[2018-06-25] MEDS: SODIUM CHLORIDE 0.9% 500 ML 500 ML IV SCH
[2018-06-25] MEDS: HYDROmorphone 0.5 MG/0.5 ML SYRINGE IVP PRN ×8 (00:57→23:15)
[2018-06-25] MEDS: PANTOPRAZOLE 40 MG TABLET PO SCH ×2 (06:21→17:03)
[2018-06-25 06:48] LABS: Anisocytosis Moderate; Basophils % (A) 0 %; Eosinophils % (A) 0 %; HCT 30.8 % (34.0-46.0); HGB 8.9 gm/dL (11.4-16.0); Hypochromasia Marked; Lymphocytes # (A) 1.5 k/uL (1.0-4.8); Lymphocytes % (A) 6 %; MCH 22.1 pg (25.0-35.0); MCHC 28.8 g/dL (31.0-37.0); MCV 76.8 fL (80.0-100.0); Mean Platelet Volume 6.9; Microcytosis Marked; Monocytes # (A) 0.5 k/uL (0-1.0); Monocytes % (A) 2 %; Neutrophils # (A) 21.8 k/uL (1.3-7.7); Neutrophils % (A) 91 %; Platelet Count 562 k/uL (150-450); RBC 4.02 m/uL (3.80-5.40); RDW 23.9 % (11.5-15.5); WBC 23.9 k/uL (3.8-10.6)
[2018-06-25 06:52] LABS: INR 1.4 (<1.2); Prothrombin Time 14.1 sec (9.0-12.0)
[2018-06-25 07:05] LABS: ALT 32 U/L (9-52); AST 12 U/L (14-36); Albumin 2.3 g/dL (3.5-5.0); Alkaline Phosphatase 72 U/L (38-126); Anion Gap 11 mmol/L; Blood Urea Nitrogen 14 mg/dL (7-17); Calcium 7.8 mg/dL (8.4-10.2); Carbon Dioxide 18 mmol/L (22-30); Chloride 105 mmol/L (98-107); Glucose 103 mg/dL (74-99); Magnesium 1.4 mg/dL (1.6-2.3); Phosphorus 3.6 mg/dL (2.5-4.5); Potassium 5.1 mmol/L (3.5-5.1); Sodium 134 mmol/L (137-145); Total Bilirubin 0.4 mg/dL (0.2-1.3); Total Protein 5.2 g/dL (6.3-8.2)
--- NOTE | 2018-06-25 07:10 | P.PN ---
Progress Note - Text Progress Note Date: 06/25/18 Please see initial consultation from yesterday. Patient was supposed to get a transvaginal ultrasound however she refused due to concern for discomfort and therefore they did do a abdominal pelvic ultrasound. It was suggestive of a right-sided mass but for the most part was noncontributory to her clinical situation. CA-125 was 10.5 which is normal. Patient has developed a fever to 101.1 and her white blood cell count remains elevated at 23.5. This does not fit the picture of an ovarian or gynecologic process but much more likely inflammatory gastrointestinal processes or carcinoma. I will continue to follow with you however we await general surgical and gastrointestinal consultation.
[2018-06-25] MEDS: SODIUM CHLORIDE 0.9% 1,000 ML IV SCH ×3 (07:34→20:03)
[2018-06-25] MEDS: metroNIDAZOLE-NS PMX 500 MG in SALINE 1 100ML.BAG IVPB SCH ×3 (07:34→23:14)
[2018-06-25] MEDS: MAGNESIUM SULFATE-D5W PMX 1 GM in DEXTROSE/WATER 1 100ML.BAG IVPB SCH ×2 (08:56→09:59)
[2018-06-25] MEDS: HEPARIN SODIUM,PORCINE 5,000 UNIT/ML 1 ML VIAL SQ SCH ×3 (08:58→23:14)
[2018-06-25] MEDS: ACETAMINOPHEN TAB 325 MG TAB PO PRN ×2 (11:14→17:13)
[2018-06-25] MEDS ORDERED: RX INFO: IV CONTRAST WAS GIVEN 1 EACH MISC MISCELLANE PRN (12:04)
[2018-06-25] MEDS ORDERED: PEG 3350-NA SULF,BICARB,CL/KCL 4,000 ML BOTTLE PO ONE ×2 (12:57→14:00)
[2018-06-25] MEDS ORDERED: BISACODYL 5 MG TABLET.DR PO STA (12:58)
[2018-06-25] MEDS: ONDANSETRON 4 MG/2 ML VIAL IVP PRN (15:21)
--- NOTE | 2018-06-25 16:01 | P.PN ---
Subjective Progress Note Date: 06/25/18 Principal diagnosis: follow up for multiple intrabdominal/pelvic masses, anemia, sepsis patient seen and examined, overnight had a fever and tachycardia, met criteria for sepsis due to suspected colitis . vs physiological response (catecholamine ) to underlying pathology . patient was given aggressive IVF hydration which she tolerated, no more fevers this morning . tolerating PO intake , no BM. she is to drink golytely today in prep for Cscope in AM. denies any bleeding Objective - Vital Signs Vital signs: Vital Signs Temp 100.1 F H 06/25/18 11:00 Pulse 117 H 06/25/18 11:00 Resp 13 06/25/18 11:00 BP 110/61 06/25/18 11:00 Pulse Ox 92 L 06/25/18 11:00 Intake & Output 06/24/18 06/25/18 06/25/18 18:59 06:59 18:59 Intake Total 549 422 9751 Output Total 300 Balance 040 331 5842 Weight 90.2 kg Intake: Intake, IV Titration 900 1500 Amount Magnesium Sulfate-D5w Pmx 200 1 gm In Dextrose/Water 1 100ml.bag @ 100 mls/hr IVPB Q1H [facility] Rx#: [id number] Sodium Chloride 0.9% 1, 1200 000 ml @ 150 mls/hr IV . Q6H40M [facility] Rx#:[id number] cefTRIAXone 1 gm In 800 Sodium Chloride 0.9% 50 ml @ 100 mls/hr IVPB ONCE [facility] Rx#:[id number] metroNIDAZOLE-NS PMX 500 100 100 mg In Saline 1 100ml.bag @ 100 mls/hr IVPB Q8HR [facility] Rx#:[id number] Oral 600 0 Output: Urine 300 Other: Voiding Method Bedside Commode # Voids 2 1 # Bowel Movements 0 - Exam Constitutional: tachycardia, Not in acute distress, pleasant, conversant Lungs: Clear to auscultation bilaterally, clear to percussion, normal respiratory effort no use of accessory muscles Cardiovascular: Regular rate and rhythm, no murmurs, no gallops, no rubs, no peripheral edema Gastrointestinal: soft abd , diffusely tender to palpation , with voluntary guarding BOWEL SOUNDS sluggish no abdominal wall hernias Extremities: No digital cyanosis or clubbing, peripheral pulses palpable and equal over bilateral radial arteries and dorsalis pedis artery, no calf muscle tenderness Psych: Alert, oriented to place, person and time, appropriate affect, intact judgment Neuro: Cranial nerves II-XII grossly intact, no focal sensory deficits to touch - Labs CBC & Chem 7: 06/25/18 05:28 06/25/18 05:28 Labs: Abnormal Lab Results - Last 24 Hours (Table) 06/24/18 06/24/18 06/24/18 Range/Units 13:22 13:22 21:31 WBC (3.8-10.6) k/uL Hgb (11.4-16.0) gm/dL Hct (34.0-46.0) % MCV (80.0-100.0) fL MCH (25.0-35.0) pg MCHC (31.0-37.0) g/dL RDW (11.5-15.5) % Plt Count (150-450) k/uL Neutrophils # (1.3-7.7) k/uL PT 12.2 H (9.0-12.0) sec INR 1.2 H (<1.2) Sodium (137-145) mmol/L Potassium 5.8 H (3.5-5.1) mmol/L Carbon Dioxide 17 L (22-30) mmol/L Glucose 183 H (74-99) mg/dL POC Glucose (mg/dL) (75-99) mg/dL Plasma Lactic Acid Vneu 2.7 H* (0.7-2.0) mmol/L Calcium (8.4-10.2) mg/dL Magnesium (1.6-2.3) mg/dL AST (14-36) U/L Lactate Dehydrogenase (313-618) U/L Total Protein (6.3-8.2) g/dL Albumin (3.5-5.0) g/dL 06/24/18 06/24/18 06/24/18 Range/Units 21:38 21:38 23:13 WBC 24.5 H (3.8-10.6) k/uL Hgb 9.8 L (11.4-16.0) gm/dL Hct 33.3 L (34.0-46.0) % MCV 77.9 L (80.0-100.0) fL MCH 22.9 L (25.0-35.0) pg MCHC 29.3 L (31.0-37.0) g/dL RDW 22.5 H (11.5-15.5) % Plt Count 748 H (150-450) k/uL Neutrophils # (1.3-7.7) k/uL PT (9.0-12.0) sec INR (<1.2) Sodium 133 L (137-145) mmol/L Potassium 6.1 H* (3.5-5.1) mmol/L Carbon Dioxide 21 L (22-30) mmol/L Glucose 148 H (74-99) mg/dL POC Glucose (mg/dL) 145 H (75-99) mg/dL Plasma Lactic Acid Venu (0.7-2.0) mmol/L Calcium (8.4-10.2) mg/dL Magnesium (1.6-2.3) mg/dL AST (14-36) U/L Lactate Dehydrogenase (313-618) U/L Total Protein (6.3-8.2) g/dL Albumin (3.5-5.0) g/dL 06/25/18 06/25/18 06/25/18 Range/Units 05:28 05:28 05:28 WBC 23.9 H (3.8-10.6) k/uL Hgb 8.9 L (11.4-16.0) gm/dL Hct 30.8 L (34.0-46.0) % MCV 76.8 L (80.0-100.0) fL MCH 22.1 L (25.0-35.0) pg MCHC 28.8 L (31.0-37.0) g/dL RDW 23.9 H (11.5-15.5) % Plt Count 562 H (150-450) k/uL Neutrophils # 21.8 H (1.3-7.7) k/uL PT 14.1 H (9.0-12.0) sec INR 1.4 H (<1.2) Sodium 134 L (137-145) mmol/L Potassium (3.5-5.1) mmol/L Carbon Dioxide 18 L (22-30) mmol/L Glucose 103 H (74-99) mg/dL POC Glucose (mg/dL) (75-99) mg/dL Plasma Lactic Acid Venu (0.7-2.0) mmol/L Calcium 7.8 L (8.4-10.2) mg/dL Magnesium 1.4 L (1.6-2.3) mg/dL AST 12 L (14-36) U/L Lactate Dehydrogenase (313-618) U/L Total Protein 5.2 L (6.3-8.2) g/dL Albumin 2.3 L (3.5-5.0) g/dL 06/25/18 Range/Units 05:28 WBC (3.8-10.6) k/uL Hgb (11.4-16.0) gm/dL Hct (34.0-46.0) % MCV (80.0-100.0) fL MCH (25.0-35.0) pg MCHC (31.0-37.0) g/dL RDW (11.5-15.5) % Plt Count (150-450) k/uL Neutrophils # (1.3-7.7) k/uL PT (9.0-12.0) sec INR (<1.2) Sodium (137-145) mmol/L Potassium (3.5-5.1) mmol/L Carbon Dioxide (22-30) mmol/L Glucose (74-99) mg/dL POC Glucose (mg/dL) (75-99) mg/dL Plasma Lactic Acid Venu (0.7-2.0) mmol/L Calcium (8.4-10.2) mg/dL Magnesium (1.6-2.3) mg/dL AST (14-36) U/L Lactate Dehydrogenase 667 H (313-618) U/L Total Protein (6.3-8.2) g/dL Albumin (3.5-5.0) g/dL Microbiology - Last 24 Hours (Table) 06/24/18 12:03 Urine Culture - Preliminary Urine,Voided Assessment and Plan Assessment: 43-year-old female with no significant past medical history except for microcytic anemia admitted as inpatient with anticipated length of stay more than 48 hours due to severe sudden onset worsening of her lower abdominal pain CAT scan showed multiple abdominal masses with possible metastases to the liver suspicious for malignancy. Labs showed microcystic anemia. Patient admitted for further evaluation and care, and pain control. Severe intractable abdominal pain due to the following , Colitis, mesentery mass lesion, Left lateral extraperitoneal pelvic mass with mass effect over the uterus distal rectosigmoid with possible necrotic pelvic metastasis lymphadenopathy, masses immediately behind the left and Anexsia 06/25 Patient met sepsis criteria overnight , CULTURES obtained, fluids given, repeat labs this morning show resolution of hyperkalemia. currently on rocephine and flagyl for possible sepsis 2/2 colitis , vs catecholamine response to under lying pathology plan for Cscope in AM Plan: severe intractable abd pain due to Differential diagnosis so far primary colonic mass with pelvic lymphadenopathy versus pelvic metastatic lymphadenopathy from left ovarian cancer with involvement of adjacent colon and distal mesentery, Hypoattenuating lesions in the liver which may represent metastases to the liver versus hemangioma Possible pulmonary nodule on chest x-ray Pain control with opiates Golytely for CSCOPE in AM Oncology consult GI consult [employer] consult Patient will require tissue biopsy for diagnosis Patient will also require CAT scan of the head and chest for staging evaluation of extent of metastasis assuming underlying condition is malignancy Chronic microcytic anemia Monitor hemoglobin Patient receiving IV iron infusions outpatient PPI Acute kidney injury and hyperkalemia Evidence of left mild hydronephrosis hyperkalemia resolved Monitor potassium closely IV fluid hydration Avoid nephrotoxic meds hypomagnesemia , replace IV , and follow up levels possible sepsis 2/2 colitis Leukocytosis could be reactive versus underlying colitis Continue with Flagyl Monitor vital signs Reactive thrombocytosis Continue to monitor DVT prophylaxis heparin subcu 3 times a day CSCOPE in am follow up labs and cultures
[2018-06-25 16:20] VITALS: BMI 34.1
--- NOTE | 2018-06-25 16:38 | P.CONS ---
History of Present Illness - Reason for Consult Consult date: 06/25/18 Intrabdominal masses Requesting physician: Grzegorz Bah - Chief Complaint Abdominal Pain - History of Present Illness Dayana is a pleasant, but frustrated 43 year old female patient who presents for persist abdominal pain and changes in bowels. Denies any bloody stools, admits to heavy menses. She presented to Emergency for further evaluation as she felt there is something wrong. CT abdomen was completed and showed concerns for infectiou, inflammatory colitis, abnormal findings of multiple abdominal masses measuring 2-4cm in size. See Report for details. GI is following. She presents with moderate microcytic Anemia and Leukocytosis. Because of these finding O ncology has been asked to further evaluate. Review of Systems A 14 point review of systems assessed and completed and all negative except HPI Past Medical History Past Medical History: No Reported History Additional Past Medical History / Comment(s): microcytic anemia History of Any Multi-Drug Resistant Organisms: None Reported Past Surgical History: Tubal Ligation Additional Past Surgical History / Comment(s): Patient has had an endometrial ablation in [address] Veras. Past Anesthesia/Blood Transfusion Reactions: No Reported Reaction Smoking Status: Current every day smoker - Past Family History Mother Family Medical History: Congestive Heart Failure (CHF), Diabetes Mellitus Father Family Medical History: Diabetes Mellitus Additional Family Medical History / Comment(s): lung cancer in aunt, who is a smoker Medications and Allergies Home Medications Medication Instructions Recorded Confirmed Type Biotin 5 mg PO DAILY 05/15/18 06/24/18 History Meloxicam 15 mg PO DAILY 05/15/18 06/24/18 History Ibuprofen [Motrin] 800 mg PO Q8H 06/24/18 06/24/18 History Allergies Allergy/AdvReac Type Severity Reaction Status Date / Time No Known Allergies Allergy Verified 06/24/18 07:30 Physical Exam Vitals: Vital Signs Temp Pulse Resp BP Pulse Ox 06/25/18 11:00 100.1 F H 117 H 13 110/61 92 L 06/25/18 08:00 99.3 F 124 H 16 112/66 91 L 06/25/18 05:00 99.4 F 98 16 104/66 94 L 06/25/18 00:25 99.5 F 90 16 108/65 94 L 06/24/18 21:00 101.1 F H 102 H 17 106/65 98 Intake and Output 06/25/18 06/25/18 06/25/18 06:59 14:59 22:59 Intake Total 1500 Output Total 300 Balance -300 1500 Intake: Intake, IV Titration 1500 Amount Magnesium Sulfate-D5w Pmx 200 1 gm In Dextrose/Water 1 100ml.bag @ 100 mls/hr IVPB Q1H [facility] Rx#: [id number] Sodium Chloride 0.9% 1, 1200 000 ml @ 150 mls/hr IV . Q6H40M [facility] Rx#:[id number] metroNIDAZOLE-NS PMX 500 100 mg In Saline 1 100ml.bag @ 100 mls/hr IVPB Q8HR [facility] Rx#:[id number] Oral 0 Output: Urine 300 Other: Voiding Method Bedside Commode # Voids 1 Weight 90.2 kg 90.2 kg Gen: Alert, NAD Neck: Supple No supraclavicular, cervical or axillary adenopathy Heart: Tachy, Reg Lungs: CTA: Bilat, no increased effort Abdomen: Soft, Tender to palpation Extremities: No rashes or edema Neuro: No sensory or motor deficits. Results CBC & Chem 7: 06/25/18 05:28 06/25/18 05:28 Labs: Abnormal Lab Results - Last 24 Hours (Table) 06/24/18 06/24/18 06/24/18 Range/Units 13:22 21:31 21:38 WBC 24.5 H (3.8-10.6) k/uL Hgb 9.8 L (11.4-16.0) gm/dL Hct 33.3 L (34.0-46.0) % MCV 77.9 L (80.0-100.0) fL MCH 22.9 L (25.0-35.0) pg MCHC 29.3 L (31.0-37.0) g/dL RDW 22.5 H (11.5-15.5) % Plt Count 748 H (150-450) k/uL Neutrophils # (1.3-7.7) k/uL PT (9.0-12.0) sec INR (<1.2) Sodium (137-145) mmol/L Potassium 5.8 H (3.5-5.1) mmol/L Carbon Dioxide 17 L (22-30) mmol/L Glucose 183 H (74-99) mg/dL POC Glucose (mg/dL) (75-99) mg/dL Plasma Lactic Acid Venu 2.7 H* (0.7-2.0) mmol/L Calcium (8.4-10.2) mg/dL Magnesium (1.6-2.3) mg/dL AST (14-36) U/L Lactate Dehydrogenase (313-618) U/L Total Protein (6.3-8.2) g/dL Albumin (3.5-5.0) g/dL 06/24/18 06/24/18 06/25/18 Range/Units 21:38 23:13 05:28 WBC 23.9 H (3.8-10.6) k/uL Hgb 8.9 L (11.4-16.0) gm/dL Hct 30.8 L (34.0-46.0) % MCV 76.8 L (80.0-100.0) fL MCH 22.1 L (25.0-35.0) pg MCHC 28.8 L (31.0-37.0) g/dL RDW 23.9 H (11.5-15.5) % Plt Count 562 H (150-450) k/uL Neutrophils # 21.8 H (1.3-7.7) k/uL PT (9.0-12.0) sec INR (<1.2) Sodium 133 L (137-145) mmol/L Potassium 6.1 H* (3.5-5.1) mmol/L Carbon Dioxide 21 L (22-30) mmol/L Glucose 148 H (74-99) mg/dL POC Glucose (mg/dL) 145 H (75-99) mg/dL Plasma Lactic Acid Venu (0.7-2.0) mmol/L Calcium (8.4-10.2) mg/dL Magnesium (1.6-2.3) mg/dL AST (14-36) U/L Lactate Dehydrogenase (313-618) U/L Total Protein (6.3-8.2) g/dL Albumin (3.5-5.0) g/dL 06/25/18 06/25/18 06/25/18 Range/Units 05:28 05:28 05:28 WBC (3.8-10.6) k/uL Hgb (11.4-16.0) gm/dL Hct (34.0-46.0) % MCV (80.0-100.0) fL MCH (25.0-35.0) pg MCHC (31.0-37.0) g/dL RDW (11.5-15.5) % Plt Count (150-450) k/uL Neutrophils # (1.3-7.7) k/uL PT 14.1 H (9.0-12.0) sec INR 1.4 H (<1.2) Sodium 134 L (137-145) mmol/L Potassium (3.5-5.1) mmol/L Carbon Dioxide 18 L (22-30) mmol/L Glucose 103 H (74-99) mg/dL POC Glucose (mg/dL) (75-99) mg/dL Plasma Lactic Acid Venu (0.7-2.0) mmol/L Calcium 7.8 L (8.4-10.2) mg/dL Magnesium 1.4 L (1.6-2.3) mg/dL AST 12 L (14-36) U/L Lactate Dehydrogenase 667 H (313-618) U/L Total Protein 5.2 L (6.3-8.2) g/dL Albumin 2.3 L (3.5-5.0) g/dL Microbiology - Last 24 Hours (Table) 06/24/18 12:03 Urine Culture - Preliminary Urine,Voided CT scan - abdomen: report reviewed CT scan - pelvis: report reviewed Assessment and Plan (1) Abdominal mass Current Visit: Yes Status: Acute Code(s): R19.00 - INTRA-ABD AND PELVIC SWELLING, MASS AND LUMP, UNSP SITE SNOMED Code(s): 535254753 (2) Abdominal pain Current Visit: Yes Status: Acute Code(s): R10.9 - UNSPECIFIED ABDOMINAL PAIN SNOMED Code(s): 37772047 (3) Chronic anemia Current Visit: Yes Status: Acute Code(s): D64.9 - ANEMIA, UNSPECIFIED SNOMED Code(s): 673293435 (4) Colitis Current Visit: Yes Status: Acute Code(s): K52.9 - NONINFECTIVE GASTROENTERITIS AND COLITIS, UNSPECIFIED SNOMED Code(s): 81183947 (5) Leukocytosis Current Visit: Yes Status: Acute Code(s): D72.829 - ELEVATED WHITE BLOOD CELL COUNT, UNSPECIFIED SNOMED Code(s): 160520839 Plan: Assessment and Recommendations: Leukocytosis: - Reactive to Inflammatory Colitis, Infection Microcytic Anemia: - Acute on Chronic Blood Loss Anemia GI (hx ulcerative colitis?) and Heavy Menstration - Possible Component of Malignancy, further workup needed - Anemia work-up ordered - Transfusion support hgb less than 7 Intra-abdominal masses on CT: - Ca125 no elevation - Concern for underlying GI Malignancy, GI evaluation has been ordered and discussed with Team - Planning on Endoscopy 06/26/18 in am - CT Chest and Bone scan for full work-up - CEA and Ca19-9 ordered - IR for Percutaneous Biopsy of abdominal mass PLan: As Above - Recommend Full Breast exam and Mammogram at appropriate time - Await above and pathology results, further recs to follow Margarita SAMUELSCNP Physician Attest: I have completed the full history and physical and agree with above impression and plan, dictated as a scribe.
--- NOTE | 2018-06-25 16:40 | XR ---
EXAMINATION TYPE: XR chest 1V portable DATE OF EXAM: 06/25/2018 COMPARISON: 06/24/2018 HISTORY: Short of breath TECHNIQUE: Single frontal view of the chest is obtained. FINDINGS: There is some atelectasis at the lung bases. There is no heart failure. Heart size is norm al. There is poor inspiration. IMPRESSION: Atelectasis at the lung bases increased compared to old exam. Left lower lobe pneumonia is possible.
[2018-06-25 16:54] LABS: Anisocytosis Moderate; HCT 34.2 % (34.0-46.0); HGB 9.8 gm/dL (11.4-16.0); Hypochromasia Marked; MCHC 28.7 g/dL (31.0-37.0); MCV 76.9 fL (80.0-100.0); Mean Platelet Volume 6.7; Microcytosis Marked; Platelet Count 631 k/uL (150-450); RBC 4.45 m/uL (3.80-5.40); WBC 29.7 k/uL (3.8-10.6)
[2018-06-25] MEDS: ALPRAZolam 0.5 MG TAB PO PRN (17:13)
--- NOTE | 2018-06-25 18:41 | P.CONS ---
History of Present Illness - Reason for Consult Consult date: 06/25/18 Colon mass Requesting physician: Grzegorz Bah - Chief Complaint Abdominal pain - History of Present Illness [id number]-qnie-akp female with medical history significant for anemia who presented to the hospital with complaints of lower abdominal pain. The patient reports severe sharp abdominal pain in the lower abdominal area below the umbilicus. She reports that she has had over 6 months of oral pain however. Acute worsening of her symptoms prior to presentation. She reports associated constipation with the pain for which she has failed outpatient treatment with [id number] laxatives and is using prune juice at home. The patient also notes weight loss of 100 pounds over the past 2 years. She reports that over the past one month she has noted bleeding with bowel movements as well as vaginal bleeding. She has received infusions for severe anemia in the past. She was also seen in the outpatient setting at which time her chief complaint was of an anal fissure. The patient was given topical treatment for which she said worked well and told to follow-up. However the patient failed follow-up and chose to see a different provider for her symptoms. On presentation laboratory evaluation was significant for a WBC 23.9, hemoglobin 8.9, platelet count 562,000, total bilirubin 0.4, alkaline phosphatase 72, AST 12 and ALT 32. The patient had computed tomography scan in evaluation which was significant for numerous findings including abnormal mucosal thickening of the sigmoid colon, soft tissue density extending superiorly from the abnormal sigmoid colon and into the adjacent distal mesentery, heterogeneous abnormal soft tissue density involving the left lateral extraperitoneal pelvic wall, mild left hydroureteronephrosis, and indeterminate hypoattenuating structure in the superior segment of the right lobe of the liver. Review of Systems REVIEW OF SYSTEMS: CONSTITUTIONAL: Denies any fevers, chills, or fatigue, but reports. CARDIOVASCULAR: Denies any chest pain, palpitations high or low blood pressures RESPIRATORY: Denies any shortness of breath, hemoptysis or cough. GENITOURINARY: No dysuria or hematuria, but does report vaginal bleeding. MUSCULOSKELETAL: No weakness reported. SKIN: Denies any new rashes or lesions, jaundice or pallor. PSYCHIATRIC: Denies any depression or anxiety. NEUROLOGY: Denies headache, denies any new focal deficits. EARS/NOSE/THROAT: No recent hearing change, congestion, nasal discharge or sore throat. EYES: No pain in eyes, discharge or change in vision. GASTROINTESTINAL: As per HPI. Past Medical History Past Medical History: No Reported History Additional Past Medical History / Comment(s): microcytic anemia History of Any Multi-Drug Resistant Organisms: None Reported Past Surgical History: Tubal Ligation Additional Past Surgical History / Comment(s): Patient has had an endometrial a blation in [address] Veras. Past Anesthesia/Blood Transfusion Reactions: No Reported Reaction Smoking Status: Current every day smoker - Past Family History Mother Family Medical History: Congestive Heart Failure (CHF), Diabetes Mellitus Father Family Medical History: Diabetes Mellitus Additional Family Medical History / Comment(s): lung cancer in aunt, who is a smoker Medications and Allergies Home Medications Medication Instructions Recorded Confirmed Type Biotin 5 mg PO DAILY 05/15/18 06/24/18 History Meloxicam 15 mg PO DAILY 05/15/18 06/24/18 History Ibuprofen [Motrin] 800 mg PO Q8H 06/24/18 06/24/18 History Allergies Allergy/AdvReac Type Severity Reaction Status Date / Time No Known Allergies Allergy Verified 06/24/18 07:30 Physical Exam Vitals: Vital Signs Temp Pulse Resp BP Pulse Ox 06/25/18 08:00 99.3 F 124 H 16 112/66 91 L 06/25/18 05:00 99.4 F 98 16 104/66 94 L 06/25/18 00:25 99.5 F 90 16 108/65 94 L 06/24/18 21:00 101.1 F H 102 H 17 106/65 98 06/24/18 16:25 114 H 20 06/24/18 13:53 114 H 20 Intake and Output 06/24/18 06/25/18 06/25/18 22:59 06:59 14:59 Intake Total 900 1500 Output Total 300 Balance 900 -300 1500 Intake: Intake, IV Titration 900 1500 Amount Magnesium Sulfate-D5w Pmx 200 1 gm In Dextrose/Water 1 100ml.bag @ 100 mls/hr IVPB Q1H [facility] Rx#: [id number] Sodium Chloride 0.9% 1, 1200 000 ml @ 150 mls/hr IV . Q6H40M [facility] Rx#:[id number] cefTRIAXone 1 gm In 800 Sodium Chloride 0.9% 50 ml @ 100 mls/hr IVPB ONCE STA Rx#:[id number] metroNIDAZOLE-NS PMX 500 100 100 mg In Saline 1 100ml.bag @ 100 mls/hr IVPB Q8HR [facility] Rx#:[id number] Output: Urine 300 Other: Voiding Method Bedside Commode # Voids 1 # Bowel Movements 0 Weight 90.2 kg On physical examination, patient appears comfortable in no apparent distress. HEAD: Normocephalic, atraumatic. EYES: No scleral icterus. No conjunctival injection. MOUTH: No lesions, tongue midline. NECK: Trachea midline, no gross abnormalities. CHEST: Clear to auscultation with no wheezing or rhonchi appreciated. HEART: Regular rate and rhythm. ABDOMEN: Soft, obese, and diffusely tender to palpation. Bowel sounds are positive. No organomegaly. No guarding or rigidity. EXTREMITIES: No pedal edema. SKIN: No rashes, no jaundice. NEUROLOGIC: Alert and oriented x3. No focal deficits. Results CBC & Chem 7: 06/25/18 16:20 06/25/18 05:28 Labs: Abnormal Lab Results - Last 24 Hours (Table) 06/24/18 06/24/18 06/24/18 Range/Units 12:03 13:22 13:22 WBC (3.8-10.6) k/uL Hgb (11.4-16.0) gm/dL Hct (34.0-46.0) % MCV (80.0-100.0) fL MCH (25.0-35.0) pg MCHC (31.0-37.0) g/dL RDW (11.5-15.5) % Plt Count (150-450) k/uL Neutrophils # (1.3-7.7) k/uL PT (9.0-12.0) sec INR (<1.2) D-Dimer 5.18 H (<0.60) mg/L FEU Sodium (137-145) mmol/L Potassium (3.5-5.1) mmol/L Carbon Dioxide (22-30) mmol/L Glucose (74-99) mg/dL POC Glucose (mg/dL) (75-99) mg/dL Plasma Lactic Acid Venu (0.7-2.0) mmol/L Calcium (8.4-10.2) mg/dL Magnesium (1.6-2.3) mg/dL AST (14-36) U/L Total Protein (6.3-8.2) g/dL Albumin (3.5-5.0) g/dL Amylase <30 L (30-110) U/L Lipase 21 L (23-300) U/L Ur Specific [place] >1.050 H (1.001-1.035) Urine Protein 1+ H (Negative) Urine Ketones Trace H (Negative) Urine WBC 6 H (0-5) /hpf Urine Mucus Rare H (None) /hpf 06/24/18 06/24/18 06/24/18 Range/Units 13:22 13:22 21:31 WBC (3.8-10.6) k/uL Hgb (11.4-16.0) gm/dL Hct (34.0-46.0) % MCV (80.0-100.0) fL MCH (25.0-35.0) pg MCHC (31.0-37.0) g/dL RDW (11.5-15.5) % Plt Count (150-450) k/uL Neutrophils # (1.3-7.7) k/uL PT 12.2 H (9.0-12.0) sec INR 1.2 H (<1.2) D-Dimer (<0.60) mg/L FEU Sodium (137-145) mmol/L Potassium 5.8 H (3.5-5.1) mmol/L Carbon Dioxide 17 L (22-30) mmol/L Glucose 183 H (74-99) mg/dL POC Glucose (mg/dL) (75-99) mg/dL Plasma Lactic Acid Venu 2.7 H* (0.7-2.0) mmol/L Calcium (8.4-10.2) mg/dL Magnesium (1.6-2.3) mg/dL AST (14-36) U/L Total Protein (6.3-8.2) g/dL Albumin (3.5-5.0) g/dL Amylase (30-110) U/L Lipase (23-300) U/L Ur Specific [place] (1.001-1.035) Urine Protein (Negative) Urine Ketones (Negative) Urine WBC (0-5) /hpf Urine Mucus (None) /hpf 06/24/18 06/24/18 06/24/18 Range/Units 21:38 21:38 23:13 WBC 24.5 H (3.8-10.6) k/uL Hgb 9.8 L (11.4-16.0) gm/dL Hct 33.3 L (34.0-46.0) % MCV 77.9 L (80.0-100.0) fL MCH 22.9 L (25.0-35.0) pg MCHC 29.3 L (31.0-37.0) g/dL RDW 22.5 H (11.5-15.5) % Plt Count 748 H (150-450) k/uL Neutrophils # (1.3-7.7) k/uL PT (9.0-12.0) sec INR (<1.2) D-Dimer (<0.60) mg/L FEU Sodium 133 L (137-145) mmol/L Potassium 6.1 H* (3.5-5.1) mmol/L Carbon Dioxide 21 L (22-30) mmol/L Glucose 148 H (74-99) mg/dL POC Glucose (mg/dL) 145 H (75-99) mg/dL Plasma Lactic Acid Venu (0.7-2.0) mmol/L Calcium (8.4-10.2) mg/dL Magnesium (1.6-2.3) mg/dL AST (14-36) U/L Total Protein (6.3-8.2) g/dL Albumin (3.5-5.0) g/dL Amylase (30-110) U/L Lipase (23-300) U/L Ur Specific [place] (1.001-1.035) Urine Protein (Negative) Urine Ketones (Negative) Urine WBC (0-5) /hpf Urine Mucus (None) /hpf 06/25/18 06/25/18 06/25/18 Range/Units 05:28 05:28 05:28 WBC 23.9 H (3.8-10.6) k/uL Hgb 8.9 L (11.4-16.0) gm/dL Hct 30.8 L (34.0-46.0) % MCV 76.8 L (80.0-100.0) fL MCH 22.1 L (25.0-35.0) pg MCHC 28.8 L (31.0-37.0) g/dL RDW 23.9 H (11.5-15.5) % Plt Count 562 H (150-450) k/uL Neutrophils # 21.8 H (1.3-7.7) k/uL PT 14.1 H (9.0-12.0) sec INR 1.4 H (<1.2) D-Dimer (<0.60) mg/L FEU Sodium 134 L (137-145) mmol/L Potassium (3.5-5.1) mmol/L Carbon Dioxide 18 L (22-30) mmol/L Glucose 103 H (74-99) mg/dL POC Glucose (mg/dL) (75-99) mg/dL Plasma Lactic Acid Venu (0.7-2.0) mmol/L Calcium 7.8 L (8.4-10.2) mg/dL Magnesium 1.4 L (1.6-2.3) mg/dL AST 12 L (14-36) U/L Total Protein 5.2 L (6.3-8.2) g/dL Albumin 2.3 L (3.5-5.0) g/dL Amylase (30-110) U/L Lipase (23-300) U/L Ur Specific [place] (1.001-1.035) Urine Protein (Negative) Urine Ketones (Negative) Urine WBC (0-5) /hpf Urine Mucus (None) /hpf Microbiology - Last 24 Hours (Table) 06/24/18 12:03 Urine Culture - Preliminary Urine,Voided CT scan - abdomen: report reviewed (computed tomography scan in evaluation which was significant for numerous findings including abnormal mucosal thickening of the sigmoid colon, soft tissue density extending superiorly from the abnormal sigmoid colon and into the adjacent distal mesentery, heterogeneous abnormal soft tissue density involving the left lateral extraperitoneal pelvic wall, mild left hydroureteronephrosis, and indeterminate hypoattenuating structure in the superior segment of the right lobe of the liver.) Assessment and Plan (1) Abdominal mass Narrative/Plan: Patient presenting with abdominal pain and change in bowel habits with associated CT findings of colonic thickening and possible masses with extension from the colon. The patient also reports associated unintentional weight loss. Current Visit: Yes Status: Acute Code(s): R19.00 - INTRA-ABD AND PELVIC SWELLING, MASS AND LUMP, UNSP SITE SNOMED Code(s): 896277355 (2) Abdominal pain Current Visit: Yes Status: Acute Code(s): R10.9 - UNSPECIFIED ABDOMINAL PAIN SNOMED Code(s): 37757019 Plan: Supportive care Okay for liquid diet Bowel prep ordered Nothing by mouth after midnight Plan on EGD and colonoscopy in the morning Appreciate hematology/oncology recommendations Plan is for further imaging, with CT-guided biopsy Thank you for allowing us to participate in the care of the patient, we will continue to follow
[2018-06-26] MEDS: HYDROmorphone 0.5 MG/0.5 ML SYRINGE IVP PRN ×7 (03:23→23:30)
[2018-06-26] MEDS: ALPRAZolam 0.5 MG TAB PO PRN (03:31)
[2018-06-26] MEDS: ONDANSETRON 4 MG/2 ML VIAL IVP PRN (05:15)
[2018-06-26] MEDS: PANTOPRAZOLE 40 MG TABLET PO SCH ×2 (06:53→17:22)
[2018-06-26 07:35] LABS: INR 1.4 (<1.2)
[2018-06-26] MEDS: SODIUM CHLORIDE 0.9% 1,000 ML IV SCH ×3 (08:17→18:09)
[2018-06-26] MEDS: metroNIDAZOLE-NS PMX 500 MG in SALINE 1 100ML.BAG IVPB SCH ×3 (08:17→23:25)
[2018-06-26] MEDS: HEPARIN SODIUM,PORCINE 5,000 UNIT/ML 1 ML VIAL SQ SCH ×3 (08:17→23:27)
[2018-06-26 10:41] LABS: Cancer Antigen 19-9 19.6 U/mL (0.0-34.9)
[2018-06-26] MEDS ORDERED: MIDAZOLAM 2 MG/2 ML VIAL ONE (13:12)
[2018-06-26] MEDS ORDERED: LIDOCAINE 1% INJ 10MG/ML (20 ML MDV) ONE (13:12)
[2018-06-26] MEDS ORDERED: PROPOFOL 10 MG/ML 20 ML VIAL IV ONE (13:12)
[2018-06-26] MEDS ORDERED: IV FLUID CONTINUATION 1,000 ML IV ONE (13:13)
--- NOTE | 2018-06-26 14:10 | P.PCN ---
Date of Procedure: 06/26/18 Description of Procedure: Brief history: 43-year-old female with medical history significant for anemia who presented to the hospital with complaints of lower abdominal pain. The patient reports severe sharp abdominal pain in the lower abdominal area below the umbilicus. She reports that she has had over 6 months of oral pain however. Acute worsening of her symptoms prior to presentation. She reports associated constipation with the pain for which she has failed outpatient treatment with kaxe-iik-qdcgolk laxatives and is using prune juice at home. The patient also notes weight loss of 100 pounds over the past 2 years. She reports that over the past one month she has noted bleeding with bowel movements as well as vaginal bleeding. She has received infusions for severe anemia in the past. She was also seen in the outpatient setting at which time her chief complaint was of an anal fissure. The patient was given topical treatment for which she said worked well and told to follow-up. However the patient failed follow-up and chose to see a different provider for her symptoms. On presentation laboratory evaluation was significant for a WBC 23.9, hemoglobin 8.9, platelet count 562,000, total bilirubin 0.4, alkaline phosphatase 72, AST 12 and ALT 32. The patient had computed tomography scan in evaluation which was significant for numerous findings including abnormal mucosal thickening of the sigmoid colon, soft tissue density extending superiorly from the abnormal sigmoid colon and into the adjacent distal mesentery, heterogeneous abnormal soft tissue density involving the left lateral extraperitoneal pelvic wall, mild left hydroureteronephrosis, and indeterminate hypoattenuating structure in the superior segment of the right lobe of the liver. Procedure performed: Esophagogastroduodenoscopy Colonoscopy Estimated blood loss: Minimal. Preoperative diagnosis: Abdominal pain, change in bowel habits, abnormal CT scan abdomen Anesthesia: MAC Procedure: After informed consent was obtained from the patient was brought into the endoscopy unit and IV sedation was administered by anesthesia under continuous monitoring. Initially upper endoscopy was done. The Olympus GF 190 video endoscope was inserted inserted into the mouth and esophagus intubated without any difficulty and was gradually advanced into the stomach and duodenum and carefully examined. The bulb and second part of the duodenum appeared normal, duodenal biopsies were taken. The scope was then withdrawn into the stomach adequately insufflated with air and upon careful examination the antrum and body, cardia and fundus appeared normal, except for mild scattered erythema s uggestive of mild gastritis with biopsies taken of the antrum and body. Multiple diminutive polyps were noted in the stomach with sampling of polyps with cold forcep polypectomy. The scope was then withdrawn into the esophagus. The GE junction was located at 35 cm to the incisors. It appeared regular with no erythema erosions or ulcerations. Rest of the esophagus appeared normal. Patient tolerated the procedure well. At this time the patient continued to remain sedation. Initial digital rectal examination was normal. Olympus CF 190 video colonoscope was then inserted into the rectum and advanced approximately 20 cm where a almost completely obstructing mass was noted. The mass was circumferential misstated almost completely obstructing with the colonoscope unable to traverse past the mass. Multiple biopsies of the mass were taken. No other lesions were noted. The prep was excellent. Patient tolerated the procedure well. Impression: 1. Duodenal biopsies. Mild gastritis antrum and body biopsied. The gastric polyp removed with cold forceps. 2. Near completely obstructing rectal mass approximately 20 cm from the anal verge with multiple biopsies taken. Recommendations: Findings of this examination were discussed with the patient and family. Keep patient nothing by mouth until seen by the surgical service. Case discussed with Dr. Steve. Await results of pathology from biopsies. Hematology oncology is following the patient. Further recommendations to follow.
--- NOTE | 2018-06-26 14:45 | P.PN ---
Subjective Progress Note Date: 06/26/18 The patient seen and examined at bedside. Reports her pain control is improved down to a 3 out of 10, requesting ice chips scheduled for EGD and colonoscopy later today. The patient continues to be tachycardic, fever seems to have resolved, patient was able to complete GoLYTELY bowel prep at around 3 AM this morning Objective - Vital Signs Vital signs: Vital Signs Temp 96.3 F L 06/26/18 07:51 Pulse 115 H 06/26/18 07:51 Resp 16 06/26/18 07:51 BP 116/73 06/26/18 07:51 Pulse Ox 93 L 06/26/18 07:51 Intake & Output 06/25/18 06/26/18 06/26/18 18:59 06:59 18:59 Intake Total 2800 Output Total 250 Balance 2550 Weight 90.2 kg 94.7 kg Intake: Intake, IV Titration 2800 Amount Magnesium Sulfate-D5w Pmx 200 1 gm In Dextrose/Water 1 100ml.bag @ 100 mls/hr IVPB Q1H [facility] Rx#: [id number] Sodium Chloride 0.9% 1, 2400 000 ml @ 150 mls/hr IV . Q6H40M [facility] Rx#:[id number] metroNIDAZOLE-NS PMX 500 200 mg In Saline 1 100ml.bag @ 100 mls/hr IVPB Q8HR [facility] Rx#:[id number] Oral 0 Output: Urine 250 Other: Voiding Method Bedside Commode # Voids 1 1 # Bowel Movements 1 - Exam Constitutional: No acute distress, conversant, pleasant Eyes: Anicteric sclerae, moist conjunctiva, no lid-lag, PERRLA ENMT: NC/AT,Oropharynx clear, no erythema, exudates Neck:Supple, FROM, no masses, or JVD, No carotid bruits; No thyromegaly Lungs: Clear to auscultation, Clear to percussion, Normal respiratory effort, no accessory muscle use Cardiovascular: Heart regular in rate and rhythm, No murmurs, gallops, or rubs no peripheral edema Abdominal: Soft Nontender, nom distended, no guarding, no rebound or rigidity, Normoactive bowel sounds No hepatomegaly, No splenomegaly, No palpable mass No abdominal wall hernia noted Skin: Normal temperature, tone, texture, turgor, No induration No subcutaneous nodules, No rash, lesions, No ulcers Extremities:No digital cyanosis No clubbing, Pedal pulses intact and symmetrical Radial pulses intact and symmetrical Normal gait and station, No calf tenderness Psychiatric: Alert and oriented to person, place and time, Appropriate affect Intact judgement Neuro: Muscles Strength 5/5 in all 4 extremities, Sensation to light touch grossly present throughout, Cranial nerves II-XII grossly intact. No focal sensory deficits - Labs CBC & Chem 7: 06/25/18 16:20 06/25/18 05:28 Labs: Abnormal Lab Results - Last 24 Hours (Table) 06/25/18 06/25/18 06/26/18 Range/Units 05:28 16:20 06:36 WBC 29.7 H (3.8-10.6) k/uL Hgb 9.8 L (11.4-16.0) gm/dL MCV 76.9 L (80.0-100.0) fL MCH 22.0 L (25.0-35.0) pg MCHC 28.7 L (31.0-37.0) g/dL RDW 24.0 H (11.5-15.5) % Plt Count 631 H (150-450) k/uL PT 14.0 H (9.0-12.0) sec INR 1.4 H (<1.2) Lactate Dehydrogenase 667 H (313-618) U/L Microbiology - Last 24 Hours (Table) 06/24/18 21:38 Blood Culture - Preliminary Blood No Growth after 24 hours 06/24/18 12:03 Urine Culture - Preliminary Urine,Voided Assessment and Plan (1) Abdominal pain Narrative/Plan: * Concern for underlying malignancy * The pain management is much improved on IV Dilaudid Current Visit: Yes Status: Acute Code(s): R10.9 - UNSPECIFIED ABDOMINAL PAIN SNOMED Code(s): 49032545 (2) Abdominal mass Narrative/Plan: * Resume the same a 6 mucosal thickening of the sigmoid colon, soft tissue d ensity extending superiorly from the abnormal sigmoid colon and into the adjacent distal mesentery, heterogeneous abnormal soft tissue density involving the left lateral extraperitoneal pelvic wall, mild left hydroureteronephrosis, and indeterminate hypoattenuating structure in the superior segment of the right lobe of the liver * Hematology oncology consult pending, * GI planning to do EGD and colonoscopy today * CT guided biopsy by IR unable to be performed due to poor access Current Visit: Yes Status: Acute Code(s): R19.00 - INTRA-ABD AND PELVIC SWELLING, MASS AND LUMP, UNSP SITE SNOMED Code(s): 627037453 (3) Chronic anemia Narrative/Plan: * Likely underlying iron deficiency anemia * Patient receiving IV infusions as an outpatient Current Visit: Yes Status: Acute Code(s): D64.9 - ANEMIA, UNSPECIFIED SNOMED Code(s): 422903039 (4) Colitis Narrative/Plan: * Significant leukocytosis * Patient will longer febrile but is still tachycardic * Continue antibiotic regimen with Flagyl and Rocephin * We'll plan to consult ID for further recommendations Current Visit: Yes Status: Acute Code(s): K52.9 - NONINFECTIVE GASTROENTERITIS AND COLITIS, UNSPECIFIED SNOMED Code(s): 78157020 Plan: * Follow up procedure recommendations * Appreciate recommendations from consultants Time with Patient: Greater than 30
--- NOTE | 2018-06-26 14:56 | P.PN ---
Subjective Progress Note Date: 06/26/18 Principal diagnosis: Multiple Abdominal Masses, New colonic Mass Status Post Colonoscopy and EGD. Per Procedure report a almost completely obtructing colonic mass was found, biopsies taken per GI and surgery has been consulted. Objective - Vital Signs Vital signs: Vital Signs Temp 97.4 F L 06/26/18 11:22 Pulse 113 H 06/26/18 11:22 Resp 18 06/26/18 11:22 BP 111/72 06/26/18 11:22 Pulse Ox 93 L 06/26/18 11:22 Intake & Output 06/25/18 06/26/18 06/26/18 18:59 06:59 18:59 Intake Total 2800 300 Output Total 250 Balance 2550 300 Weight 90.2 kg 94.7 kg Intake: IV 300 Intake, IV Titration 2800 Amount Magnesium Sulfate-D5w Pmx 200 1 gm In Dextrose/Water 1 100ml.bag @ 100 mls/hr IVPB Q1H [facility] Rx#: [id number] Sodium Chloride 0.9% 1, 2400 000 ml @ 150 mls/hr IV . Q6H40M [facility] Rx#:[id number] metroNIDAZOLE-NS PMX 500 200 mg In Saline 1 100ml.bag @ 100 mls/hr IVPB Q8HR [facility] Rx#:[id number] Oral 0 Output: Urine 250 Other: Voiding Method Bedside Commode # Voids 1 1 # Bowel Movements 1 - Exam Gen: Alert, NAD Neck: Supple No supraclavicular, cervical or axillary adenopathy Heart: Tachy, Reg Lungs: CTA: Bilat, no increased effort Abdomen: Soft, Tender to palpation Extremities: No rashes or edema Neuro: No sensory or motor deficits. - Labs CBC & Chem 7: 06/25/18 16:20 06/25/18 05:28 Labs: Abnormal Lab Results - Last 24 Hours (Table) 06/25/18 06/25/18 06/26/18 Range/Units 05:28 16:20 06:36 WBC 29.7 H (3.8-10.6) k/uL Hgb 9.8 L (11.4-16.0) gm/dL MCV 76.9 L (80.0-100.0) fL MCH 22.0 L (25.0-35.0) pg MCHC 28.7 L (31.0-37.0) g/dL RDW 24.0 H (11.5-15.5) % Plt Count 631 H (150-450) k/uL PT 14.0 H (9.0-12.0) sec INR 1.4 H (<1.2) Carcinoembryonic Ag 23.0 H (0.0-4.9) ng/mL Microbiology - Last 24 Hours (Table) 06/24/18 12:03 Urine Culture - Final Urine,Voided 06/24/18 21:38 Blood Culture - Preliminary Blood No Growth after 24 hours Assessment and Plan (1) Abdominal mass Current Visit: Yes Status: Acute Code(s): R19.00 - INTRA-ABD AND PELVIC SWELLING, MASS AND LUMP, UNSP SITE SNOMED Code(s): 496655060 (2) Abdominal pain Current Visit: Yes Status: Acute Code(s): R10.9 - UNSPECIFIED ABDOMINAL PAIN SNOMED Code(s): 96426354 (3) Chronic anemia Current Visit: Yes Status: Acute Code(s): D64.9 - ANEMIA, UNSPECIFIED SNOMED Code(s): 352511575 (4) Colitis Current Visit: Yes Status: Acute Code(s): K52.9 - NONINFECTIVE GASTROENTERITIS AND COLITIS, UNSPECIFIED SNOMED Code(s): 35007003 (5) Leukocytosis Current Visit: Yes Status: Acute Code(s): D72.829 - ELEVATED WHITE BLOOD CELL COUNT, UNSPECIFIED SNOMED Code(s): 171555038 Plan: Assessment and Recommendations: Leukocytosis: - Reactive to Inflammatory Colitis, Infection Microcytic Anemia: - Acute on Chronic Blood Loss Anemia GI (hx ulcerative colitis?) and Heavy Menstration - Possible Component of Malignancy, further workup needed - Anemia work-up ordered - Transfusion support hgb less than 7 Intra-abdominal masses on CT: - Ca125 no elevation, CEA with some elevation - Status POst EGD and Colonoscopy with almost complete obstructing mass - CT Chest and Bone scan for full work-up - Will Cancel IR percutaneous biopsy in anticipation of pathology positive for metastatic cancer from colonoscopy - Discussed case with Dr. Steve, Stent versus Diversion with history of constipation PLan: As Above - Await Biopsy results - Await surgical Eval - Await complete staging exams Margarita COLEY Physician Attest: I have completed the full history and physical and agree with above impression and plan, dictated as a scribe.
--- NOTE | 2018-06-26 16:45 | NM ---
EXAMINATION TYPE: NM bone scan whole body DATE OF EXAM: 06/26/2018 COMPARISON: CT abdomen and pelvis from 2 days ago. HISTORY: Abdominal masses, abnormal CT. Delayed whole-body scanning was performed following the injection of 23.4 mCi Tc 99m MDP. Images acq uired 6.5 hours post injection. Whole body images in anterior and posterior projection as well as add itional oblique images of the thoracolumbar spine are acquired. FINDINGS: There is no suspicious increased radiotracer uptake to suggest metastatic disease to the bone or othe r suspicious osseous abnormality. IMPRESSION: As above.
--- NOTE | 2018-06-26 17:09 | P.GSCN ---
History of Present Illness Consult date: 06/26/18 Reason for Consult: Colonic mass History of present illness: Patient presents to the ER with a several month history of vague abdominal pains and constipation. Patient had a fairly sudden onset of abdominal discomfort prior to admission. Reportedly this was during attempts at bowel movement. Patient denies vomiting. Some decrease in appetite and nausea. Patient's workup has included consultations placed to GI, oncology, and gynecology. CAT scan reviewed showing suspicious mass involving the sigmoid colon with direct extension into the pelvis and resultant left hydronephrosis and encasement of the EUFEMIA. Patient had colonoscopy performed by GI today. I was present for a portion of the procedure. Patient had a mass present at 20 cm it was not able to be passed using the adult colonoscope. Patient having some obstructive sympt oms. CAT scan from Tuesday however showed no dilation of proximal sigmoid colon and descending colon. Biopsies obtained today pending. CEA level significantly elevated. Further metastatic workup pending. Review of Systems The patient denies any acute changes in vision or hearing, no dysphagia or odynophagia, no chest pain or shortness of breath, no dysuria or hematuria, no headache, no runny nose, no melena Past Medical History Past Medical History: No Reported History Additional Past Medical History / Comment(s): microcytic anemia History of Any Multi-Drug Resistant Organisms: None Reported Past Surgical History: Tubal Ligation Additional Past Surgical History / Comment(s): Patient has had an endometrial ablation [place] [address] Veras. Past Anesthesia/Blood Transfusion Reactions: No Reported Reaction Smoking Status: Current every day smoker - Past Family History Mother Family Medical History: Congestive Heart Failure (CHF), Diabetes Mellitus Father Family Medical History: Diabetes Mellitus Additional Family Medical History / Comment(s): lung cancer in aunt, who is a smoker Medications and Allergies Home Medications Medication Instructions Recorded Confirmed Type Biotin 5 mg PO DAILY 05/15/18 06/24/18 History Meloxicam 15 mg PO DAILY 05/15/18 06/24/18 History Ibuprofen [Motrin] 800 mg PO Q8H 06/24/18 06/24/18 History Allergies Allergy/AdvReac Type Severity Reaction Status Date / Time No Known Allergies Allergy Verified 06/24/18 07:30 Surgical - Exam Vital Signs Temp Pulse Resp BP Pulse Ox 98.2 F 83 20 122/79 98 06/24/18 05:44 06/24/18 05:44 06/24/18 05:44 06/24/18 05:44 06/24/18 05:44 Physical exam: General: Well-developed, well-nourished HEENT: Normocephalic, sclerae nonicteric Abdomen: Mild distention, mild diffuse tenderness, no rebound or guarding Extremities: No edema Neuro: Alert and oriented Results - Labs 06/25/18 16:20 06/25/18 05:28 Abnormal Lab Results - Last 24 Hours (Table) 06/25/18 06/26/18 Range/Units 05:28 06:36 PT 14.0 H (9.0-12.0) sec INR 1.4 H (<1.2) Carcinoembryonic Ag 23.0 H (0.0-4.9) ng/mL Microbiology - Last 24 Hours (Table) 06/24/18 12:03 Urine Culture - Final Urine,Voided 06/24/18 21:38 Blood Culture - Preliminary Blood No Growth after 24 hours Assessment and Plan (1) Colonic mass Narrative/Plan: 43-year-old female with advanced malignancy involving the sigmoid colon causing some degree of obstructive symptoms. Suspect probable adenocarcinoma arising from the sigmoid colon although extraluminal source of malignancy has not been completely ruled out. Await completion of metastatic workup. Patient may require diverting ostomy or colonic stent placement. Would favor colonic stent in the setting as it would allow quicker initiation of neoadjuvant chemotherapy. This was discussed with oncology will be assessing this patient later this afternoon. Current Visit: Yes Status: Acute Code(s): K63.9 - DISEASE OF INTESTINE, UNSPECIFIED SNOMED Code(s): 593216802
[2018-06-26 17:18] LABS: Anion Gap 13 mmol/L; Blood Urea Nitrogen 19 mg/dL (7-17); Carbon Dioxide 19 mmol/L (22-30); Chloride 101 mmol/L (98-107); Glucose 135 mg/dL (74-99); Potassium 4.7 mmol/L (3.5-5.1); Sodium 133 mmol/L (137-145)
[2018-06-26 17:24] LABS: Anisocytosis Moderate; HCT 31.4 % (34.0-46.0); HGB 9.3 gm/dL (11.4-16.0); Hypochromasia Marked; MCH 23.4 pg (25.0-35.0); MCHC 29.6 g/dL (31.0-37.0); Mean Platelet Volume 8.5; Microcytosis Moderate; Platelet Count 622 k/uL (150-450); RBC 3.97 m/uL (3.80-5.40); RDW 22.3 % (11.5-15.5); WBC 30.4 k/uL (3.8-10.6)
[2018-06-26 17:55] LABS: Band Neutrophils % 8 %; Lymphocytes # (M) 2.13 k/uL (1.0-4.8); Neutrophils % (M) 84 %; Nucleated Red Blood Cells 0 /100 WBC (0-0); Total Cells Counted 100
[2018-06-26 17:59] LABS: Poikilocytosis (M) Present
--- NOTE | 2018-06-26 21:48 | CT ---
EXAMINATION TYPE: CT chest w con DATE OF EXAM: 06/26/2018 COMPARISON: NONE HISTORY: Abdominal masses, pain CT DLP: 457.80 mGycm. Automated Exposure Control for Dose Reduction was Utilized. TECHNIQUE: CT scan of the thorax is performed following with IV Contrast, patient injected with 100 mL of Isovue 300. FINDINGS: Exam noted suboptimal as there is respiratory motion artifact degradation. LUNGS: Low lung volumes are present. There is bibasilar atelectasis and/or consolidation with air bro nchograms abutting diaphragm. There is tiny left pleural effusion. Some central groundglass opacity i s present bilaterally. Some scattered atelectatic changes also seen mid to upper lungs. No pneumothor ax is present. Tracheobronchial tree is patent. MEDIASTINUM: There are no greater than 1 cm hilar or mediastinal lymph nodes. No cardiomegaly or pe ricardial effusion is seen. Main pulmonary artery measures 3.1 cm in diameter bifurcation axial imag e 21. Adjacent ascending aorta measures about 3.[address] findings suggesting underlying p ulmonary artery hypertension. OTHER: Hepatomegaly is identified with trace perihepatic ascites along posterior inferior margin. The re is nonspecific poorly defined 3.2 cm hypodense lesion along axis right hepatic dome axial image 38 . Spleen is prominent with central splenule and small amount of ascites inferiorly. Gallbladder has d istended margins and appears mildly dilated. Some fluid surrounds second and third portion of duodenu m. Mild multilevel spurring of thoracic spine is present. IMPRESSION: Low lung volumes with new bibasilar atelectasis and/or consolidation with air bronchogram s since CT abdomen 2 days earlier, former is favored. A 3.2 cm low dense liver lesion is less well-de fined on this study, advise contrast enhanced liver protocol CT/MRI to further evaluate and character ize if desired. Persistent small amount of abdominal ascites. New tiny left pleural effusion. Suspect underlying pulmonary hypertension, correlate clinically. No suspicious thoracic masses or adenopathy .
[2018-06-26] MEDS: ACETAMINOPHEN TAB 325 MG TAB PO PRN (23:41)
--- NOTE | 2018-06-27 00:47 | P.CONS ---
History of Present Illness - Reason for Consult Consult date: 06/26/18 sepsis Requesting physician: Yasmany Werner - Chief Complaint Abdominal pain x weeks - History of Present Illness Patient is a 43 year old female who presented to the ER at [facility] with a chief complaints of abdominal pain the patient did have a vague abdominal pain that has been going on for weeks to months, however recently ordered last few days the patient did have progressive worsening of this abdominal pain which has been mostly in the lower abdominal area describing it to be done aching pain to sharp characteristics almost 20 out of 10 when she presented to hospital, patient did associated nausea no vomiting did have constipation no diarrhea no blood in the stool patient on presentation to the hospital did have elevated white count 21,000 that has subsequently jumped to 30,000 today, patient did have blood and urine cultures obtained which are currently negative she has been treated with Rocephin and Flagyl infectious disease was consulted today for further recommendation regarding antibiotic therapy and sepsis. Patient on admission did have a CT of abdominal pelvis that has been suspicious for a sigmoid colon mass with some extension to the mesentery with possible necrotic lymphadenopathy and hydroureteronephrosis on the right side patient is status post colonoscopy completed by GI team today she was noticed to have a partially obstructing sigmoid colon tumor biopsy has been obtained Gen. surgery has evaluated the patient in addition to multiple other staff consultant Review of Systems CONSTITUTIONAL: Positive for weakness.no Fever EYES: No complaint. ENT:No complaint. RESPIRATORY: Shortness of breath no chest pain. CARDIOVASCULAR: No complaint. GENITOURINARY: No complaint. GASTROINTESTAs per history of present illness . MUSCULOSKELETAL: No complaint. INTEGUMENTARY: No complaint. PSYCHOLOGICAL: No complaint. ENDOCRINE: No complaint. NEUROLOGIC: No complaint. Past Medical History Past Medical History: No Reported History Additional Past Medical History / Comment(s): microcytic anemia History of Any Multi-Drug Resistant Organisms: None Reported Past Surgical History: Tubal Ligation Additional Past Surgical History / Comment(s): Patient has had an endometrial ablation [place] [address] Veras. Past Anesthesia/Blood Transfusion Reactions: No Reported Reaction Smoking Status: Current every day smoker - Past Family History Mother Family Medical History: Congestive Heart Failure (CHF), Diabetes Mellitus Father Family Medical History: Diabetes Mellitus Additional Family Medical History / Comment(s): lung cancer in aunt, who is a smoker Medications and Allergies Home Medications Medication Instructions Recorded Confirmed Type Biotin 5 mg PO DAILY 05/15/18 06/24/18 History Meloxicam 15 mg PO DAILY 05/15/18 06/24/18 History Ibuprofen [Motrin] 800 mg PO Q8H 06/24/18 06/24/18 History Allergies Allergy/AdvReac Type Severity Reaction Status Date / Time No Known Allergies Allergy Verified 06/24/18 07:30 Physical Exam Vitals: Vital Signs Temp Pulse Resp BP Pulse Ox 06/26/18 11:22 97.4 F L 113 H 18 111/72 93 L 06/26/18 07:51 96.3 F L 115 H 16 116/73 93 L 06/26/18 06:00 99.4 F 110 H 20 148/80 96 06/26/18 04:00 99 F 110 H 16 106/68 96 06/26/18 00:00 99.3 F 110 H 16 110/60 96 06/25/18 20:00 99.4 F 122 H 16 111/69 95 06/25/18 17:30 99.5 F 06/25/18 16:00 100.2 F H 120 H 18 122/71 94 L Intake and Output 06/26/18 06/26/18 06/26/18 06:59 14:59 22:59 Intake Total 300 Balance 300 Intake: IV 300 Other: # Voids 1 # Bowel Movements 1 Weight 94.7 kg GENERAL DESCRIPTION: Middle-aged female lying in bed, no distress. No tachypnea or accessory muscle of respiration use. HEENT: Shows Pallor , no scleral icterus. Oral mucous membrane is dry. No pharyngeal erythema or thrush NECK: Trachea central, no thyromegaly. LUNGS: Unlabored breathing. Clear to auscultation anteriorly. No wheeze or crackle. HEART: S1, S2, regular rate and rhythm. No loud murmur ABDOMEN: Soft, lower abdominal tenderness , no guarding or rigidity, no organomegaly EXTREMITIES: No edema of feet. SKIN: No rash, no masses palpable. NEUROLOGICAL: The patient is awake, alert, oriented x3, mood and affect normal. Results CBC & Chem 7: 06/26/18 06:36 06/26/18 06:36 Labs: Abnormal Lab Results - Last 24 Hours (Table) 06/25/18 06/25/18 06/26/18 Range/Units 05:28 16:20 06:36 WBC 29.7 H (3.8-10.6) k/uL Hgb 9.8 L (11.4-16.0) gm/dL MCV 76.9 L (80.0-100.0) fL MCH 22.0 L (25.0-35.0) pg MCHC 28.7 L (31.0-37.0) g/dL RDW 24.0 H (11.5-15.5) % Plt Count 631 H (150-450) k/uL PT 14.0 H (9.0-12.0) sec INR 1.4 H (<1.2) Carcinoembryonic Ag 23.0 H (0.0-4.9) ng/mL Microbiology - Last 24 Hours (Table) 06/24/18 12:03 Urine Culture - Final Urine,Voided 06/24/18 21:38 Blood Culture - Preliminary Blood No Growth after 24 hours Assessment and Plan Assessment: 1-patient with significant leukocytosis, and this patient admitted hospital with significant lower abdominal pain CT of abdominal pelvis has been suspicious for a sigmoid colon tumor that has been confirmed on colonoscopy today with a biopsy currently pending with concern for possible necrotic lymphadenopathy and associated hydroureteronephrosis on the right side will need to cover for the enteric gram-negative both anaerobes and anaerobes though no significant signs of peritonitis was noticed on evaluation and no free air has been reported on a CT of abdominal pelvis or x-rays (1) Abdominal mass Current Visit: Yes Status: Acute Code(s): R19.00 - INTRA-ABD AND PELVIC SWELLING, MASS AND LUMP, UNSP SITE SNOMED Code(s): 759591429 (2) Colitis Current Visit: Yes Status: Acute Code(s): K52.9 - NONINFECTIVE GASTROENTERITIS AND COLITIS, UNSPECIFIED SNOMED Code(s): 14520139 (3) Leukocytosis Current Visit: Yes Status: Acute Code(s): D72.829 - ELEVATED WHITE BLOOD CELL COUNT, UNSPECIFIED SNOMED Code(s): 360810755 Plan: 1- discontinue the Rocephin 2-start the patient on Zosyn 3.375 g every 8 hours 3-IV fluids We will follow-up on her clinical condition and cultures to further adjust medication if needed Time with Patient: Greater than 30
[2018-06-27] MEDS: PIPERACILLIN-TAZOBACTAM 3.375 GM in SODIUM CHLORIDE 0.9% 100 ML IVPB SCH ×2 (03:13→10:45)
[2018-06-27] MEDS: SODIUM CHLORIDE 0.9% 1,000 ML IV SCH ×3 (03:13→13:36)
[2018-06-27] MEDS: HYDROmorphone 0.5 MG/0.5 ML SYRINGE IVP PRN ×3 (03:26→18:28)
[2018-06-27 06:36] LABS: Anisocytosis Moderate; Basophils # (A) 0.1 k/uL (0-0.2); Basophils % (A) 0 %; Eosinophils # (A) 0.3 k/uL (0-0.7); Eosinophils % (A) 2 %; Hypochromasia Marked; Lymphocytes # (A) 1.7 k/uL (1.0-4.8); Lymphocytes % (A) 8 %; MCH 22.9 pg (25.0-35.0); MCHC 29.5 g/dL (31.0-37.0); MCV 77.7 fL (80.0-100.0); Microcytosis Moderate; Monocytes # (A) 0.3 k/uL (0-1.0); Monocytes % (A) 1 %; Neutrophils # (A) 19.7 k/uL (1.3-7.7); Neutrophils % (A) 89 %; Platelet Count 489 k/uL (150-450); RBC 3.47 m/uL (3.80-5.40); RDW 22.7 % (11.5-15.5); WBC 22.3 k/uL (3.8-10.6)
[2018-06-27] MEDS: PANTOPRAZOLE 40 MG TABLET PO SCH (06:46)
[2018-06-27 06:51] LABS: ALT 29 U/L (9-52); AST 15 U/L (14-36); Albumin 2.2 g/dL (3.5-5.0); Alkaline Phosphatase 69 U/L (38-126); Anion Gap 6 mmol/L; Blood Urea Nitrogen 11 mg/dL (7-17); Calcium 7.6 mg/dL (8.4-10.2); Carbon Dioxide 24 mmol/L (22-30); Chloride 103 mmol/L (98-107); Glucose 92 mg/dL (74-99); Potassium 3.8 mmol/L (3.5-5.1); Sodium 133 mmol/L (137-145); Total Bilirubin 0.3 mg/dL (0.2-1.3); Total Protein 4.8 g/dL (6.3-8.2)
[2018-06-27] MEDS: metroNIDAZOLE-NS PMX 500 MG in SALINE 1 100ML.BAG IVPB SCH ×2 (08:29→16:15)
[2018-06-27] MEDS: HEPARIN SODIUM,PORCINE 5,000 UNIT/ML 1 ML VIAL SQ SCH ×2 (08:30→16:15)
--- NOTE | 2018-06-27 08:44 | P.PN ---
Progress Note - Text Progress Note Date: 06/27/18 I came to see the patient today as follow up from consultation on the weekend. She is still on menses and it is rather heavy but her cramping and aching pain is controlled with dilaudid. We discussed the testing she had since being inpatient. I advised her that the likelihood of her having colon cancer is very high but we are waiting on the biopsy result. I explained what a stent in her colon would be for and why they would choose to do chemo before surgery. She understood everything well, and her was present. She would like more answers from oncology and surgery, she says she was not in the room when the surgeon stopped by for her consultation and never saw him. Pt would like to move ahead with treatment as soon as possible but knows we are waiting for the biopsy result. She is short of breath and continues with her abdominal pain and loose, liquid stools. Tolerating clears and voiding fine. She is requiring oxygen and there could be infiltrate or atelectasis on her CT from yesterday.
--- NOTE | 2018-06-27 10:26 | P.PN ---
Subjective Progress Note Date: 06/27/18 The patient seen and examined while sitting up in chair bedside with present, reports that she's been up and ambulatory is tolerating clear liquids. Reports that her pain seems to be more tolerable today, no fever overnight. Patient antibiotics switched from Rocephin to Zosyn white count down today from 30-22. Objective - Vital Signs Vital signs: Vital Signs Temp 99 F 06/27/18 08:00 Pulse 103 H 06/27/18 08:00 Resp 16 06/27/18 08:00 BP 102/55 06/27/18 08:00 Pulse Ox 98 06/27/18 08:00 Intake & Output 06/26/18 06/27/18 06/27/18 18:59 06:59 18:59 Intake Total 540 1300 Output Total 600 Balance -60 1300 Weight 94.7 kg Intake: IV 300 Intake, IV Titration 1300 Amount Sodium Chloride 0.9% 1, 1200 000 ml @ 150 mls/hr IV . Q6H40M [facility] Rx#:[id number] metroNIDAZOLE-NS PMX 500 100 mg In Saline 1 100ml.bag @ 100 mls/hr IVPB Q8HR [facility] Rx#:[id number] Oral 240 Output: Urine 600 Other: Voiding Method Toilet # Voids 1 # Bowel Movements 3 - Exam Constitutional: No acute distress, conversant, pleasant Eyes: Anicteric sclerae, moist conjunctiva, no lid-lag, PERRLA ENMT: NC/AT,Oropharynx clear, no erythema, exudates Neck:Supple, FROM, no masses, or JVD, No carotid bruits; No thyromegaly Lungs: Clear to auscultation, Clear to percussion, Normal respiratory effort, no accessory muscle use Cardiovascular: Heart regular in rate and rhythm, No murmurs, gallops, or rubs no peripheral edema Abdominal: Soft Nontender, nom distended, no guarding, no rebound or rigidity, Normoactive bowel sounds No hepatomegaly, No splenomegaly, No palpable mass No abdominal wall hernia noted Skin: Normal temperature, tone, texture, turgor, No induration No subcutaneous nodules, No rash, lesions, No ulcers Extremities:No digital cyanosis No clubbing, Pedal pulses intact and symmetrical Radial pulses intact and symmetrical Normal gait and station, No calf tenderness Psychiatric: Alert and oriented to person, place and time, Appropriate affect Intact judgement Neuro: Muscles Strength 5/5 in all 4 extremities, Sensation to light touch grossly present throughout, Cranial nerves II-XII grossly intact. No focal sensory deficits - Labs CBC & Chem 7: 06/27/18 06:19 06/27/18 06:19 Labs: Abnormal Lab Results - Last 24 Hours (Table) 06/25/18 06/26/18 06/26/18 Range/Units 05:28 06:36 06:36 WBC 30.4 H (3.8-10.6) k/uL RBC (3.80-5.40) m/uL Hgb 9.3 L (11.4-16.0) gm/dL Hct 31.4 L (34.0-46.0) % MCV 79.0 L (80.0-100.0) fL MCH 23.4 L (25.0-35.0) pg MCHC 29.6 L (31.0-37.0) g/dL RDW 22.3 H (11.5-15.5) % Plt Count 622 H (150-450) k/uL Neutrophils # (1.3-7.7) k/uL Neutrophils # (Manual) 27.90 H (1.3-7.7) k/uL Sodium 133 L (137-145) mmol/L Carbon Dioxide 19 L (22-30) mmol/L BUN 19 H (7-17) mg/dL Glucose 135 H (74-99) mg/dL Calcium 8.0 L (8.4-10.2) mg/dL Total Protein (6.3-8.2) g/dL Albumin (3.5-5.0) g/dL Carcinoembryonic Ag 23.0 H (0.0-4.9) ng/mL 06/27/18 06/27/18 Range/Units 06:19 06:19 WBC 22.3 H (3.8-10.6) k/uL RBC 3.47 L (3.80-5.40) m/uL Hgb 8.0 L (11.4-16.0) gm/dL Hct 27.0 L (34.0-46.0) % MCV 77.7 L (80.0-100.0) fL MCH 22.9 L (25.0-35.0) pg MCHC 29.5 L (31.0-37.0) g/dL RDW 22.7 H (11.5-15.5) % Plt Count 489 H (150-450) k/uL Neutrophils # 19.7 H (1.3-7.7) k/uL Neutrophils # (Manual) (1.3-7.7) k/uL Sodium 133 L (137-145) mmol/L Carbon Dioxide (22-30) mmol/L BUN (7-17) mg/dL Glucose (74-99) mg/dL Calcium 7.6 L (8.4-10.2) mg/dL Total Protein 4.8 L (6.3-8.2) g/dL Albumin 2.2 L (3.5-5.0) g/dL Carcinoembryonic Ag (0.0-4.9) ng/mL Microbiology - Last 24 Hours (Table) 06/24/18 21:38 Blood Culture - Preliminary Blood No Growth after 48 hours 06/24/18 12:03 Urine Culture - Final Urine,Voided Assessment and Plan (1) Abdominal pain Narrative/Plan: * Concern for underlying malignancy with colonic adenocarcinoma suspected * The pain management is much improved on IV Dilaudid Current Visit: Yes Status: Acute Code(s): R10.9 - UNSPECIFIED ABDOMINAL PAIN SNOMED Code(s): 90421678 (2) Abdominal mass Narrative/Plan: * Suspected colonic adenocarcinoma as CAT scan showed a suspicious mass involving the sigmoid colon with direct extension into the pelvis with resultant left hydronephrosis and encasement of the EUFEMIA * IR guided biopsy unable to be performed due to location & poor access of the tumor, attempted colonoscopy discovered in nearly completely obstructing colonic mass with biopsies taken * Hematology oncology consulted and metastatic workup in place, CT abdomen and pelvis indicating concern for possible metastasis to liver versus atypical hemangioma will order MRI liver contrast protocol * bone scan showing no suspicious increased uptake to suggest metastatic disease to the bones * Gen. surgery Dr. Steve contemplating colonic stenting Current Visit: Yes Status: Acute Code(s): R19.00 - INTRA-ABD AND PELVIC SWELLING, MASS AND LUMP, UNSP SITE SNOMED Code(s): 468710087 (3) Sepsis Narrative/Plan: * Leukocytosis improving down from 30-22 * Patient will longer febrile but is still tachycardic, CT of the chest suggesting bibasilar atelectasis versus consolidation with air bronchograms initiated on breathing treatments and IS * Continue antibiotic regimen with Flagyl and Zosyn * Appreciate ID recommendations, Dr Seymour following Current Visit: Yes Status: Acute Code(s): A41.9 - SEPSIS, UNSPECIFIED OR GANISM SNOMED Code(s): 15075749 (4) Colitis Narrative/Plan: * Treatment as above continue to monitor Current Visit: Yes Status: Acute Code(s): K52.9 - NONINFECTIVE GASTROENTERITIS AND COLITIS, UNSPECIFIED SNOMED Code(s): 29324053 (5) Chronic anemia Narrative/Plan: * Likely underlying iron deficiency anemia, Hg down to 8 g today continue to monitor * Patient receiving IV infusions as an outpatient Current Visit: Yes Status: Acute Code(s): D64.9 - ANEMIA, UNSPECIFIED SNOMED Code(s): 588586882 Plan: * Discussed plan of care with the patient awaiting biopsy results * Continue current management * Appreciate consultants input and feedback
[2018-06-27] MEDS: ALPRAZolam 0.5 MG TAB PO PRN ×2 (11:14→18:29)
[2018-06-27 11:20] VITALS: RESP 18
[2018-06-27] MEDS: IPRATROPIUM-ALBUTEROL 3 ML NEB INHALATION SCH ×2 (11:24→15:42)
--- NOTE | 2018-06-27 11:40 | P.PN ---
<Rachelle Gallagher - Last Filed: 06/27/18 11:36> Subjective Progress Note Date: 06/27/18 CHIEF COMPLAINT: abdominal pain HISTORY OF PRESENT ILLNESS: Patient examined this morning. She is sitting up in the chair. Spouse present. Patient reports generalized abdominal pain requiring IV narcotics. Reports loose BM this morning. Denies nausea or vomiting. PHYSICAL EXAM: VITAL SIGNS: Reviewed. GENERAL: Well-developed in no acute distress. HEENT: No sclera icterus. Extraocular movements grossly intact. Moist buccal mucosa. Head is atraumatic, normocephalic. ABDOMEN: Soft. Nondistended. Tender upon palpation. NEUROLOGIC: Alert and oriented. Cranial nerves II through XII grossly intact. ASSESSMENT: 1. Colonic mass PLAN: Await pathology report. Case discussed with oncology regarding diverting ostomy vs colonic stent placement. Leaning towards colonic stent placement. Oncology states they will speak with GI regarding colonic stent placement to see if this can be completed at current facility. Otherwise patient may require transfer to tertiary center. We will continue to follow. Nurse practitioner note has been reviewed by physician. Signing provider agrees with the documented findings, assessment, and plan of care. Objective - Vital Signs Vital signs: Vital Signs Temp 99.1 F 06/27/18 11:16 Pulse 110 H 06/27/18 11:24 Resp 18 06/27/18 11:16 BP 99/61 06/27/18 11:16 Pulse Ox 99 06/27/18 11:16 Intake & Output 06/26/18 06/27/18 06/27/18 18:59 06:59 18:59 Intake Total 540 1300 Output Total 600 Balance -60 1300 Weight 94.7 kg Intake: IV 300 Intake, IV Titration 1300 Amount Sodium Chloride 0.9% 1, 1200 000 ml @ 150 mls/hr IV . Q6H40M NERI Rx#:[id number] metroNIDAZOLE-NS PMX 500 100 mg In Saline 1 100ml.bag @ 100 mls/hr IVPB Q8HR NERI Rx#:[id number] Oral 240 Output: Urine 600 Other: Voiding Method Toilet Toilet # Voids 1 # Bowel Movements 3 - Labs CBC & Chem 7: 06/27/18 06:19 06/27/18 06:19 Labs: Abnormal Lab Results - Last 24 Hours (Table) 06/26/18 06/26/18 06/27/18 Range/Units 06:36 06:36 06:19 WBC 30.4 H 22.3 H (3.8-10.6) k/uL RBC 3.47 L (3.80-5.40) m/uL Hgb 9.3 L 8.0 L (11.4-16.0) gm/dL Hct 31.4 L 27.0 L (34.0-46.0) % MCV 79.0 L 77.7 L (80.0-100.0) fL MCH 23.4 L 22.9 L (25.0-35.0) pg MCHC 29.6 L 29.5 L (31.0-37.0) g/dL RDW 22.3 H 22.7 H (11.5-15.5) % Plt Count 622 H 489 H (150-450) k/uL Neutrophils # 19.7 H (1.3-7.7) k/uL Neutrophils # (Manual) 27.90 H (1.3-7.7) k/uL Sodium 133 L (137-145) mmol/L Carbon Dioxide 19 L (22-30) mmol/L BUN 19 H (7-17) mg/dL Glucose 135 H (74-99) mg/dL Calcium 8.0 L (8.4-10.2) mg/dL Total Protein (6.3-8.2) g/dL Albumin (3.5-5.0) g/dL 06/27/18 Range/Units 06:19 WBC (3.8-10.6) k/uL RBC (3.80-5.40) m/uL Hgb (11.4-16.0) gm/dL Hct (34.0-46.0) % MCV (80.0-100.0) fL MCH (25.0-35.0) pg MCHC (31.0-37.0) g/dL RDW (11.5-15.5) % Plt Count (150-450) k/uL Neutrophils # (1.3-7.7) k/uL Neutrophils # (Manual) (1.3-7.7) k/uL Sodium 133 L (137-145) mmol/L Carbon Dioxide (22-30) mmol/L BUN (7-17) mg/dL Glucose (74-99) mg/dL Calcium 7.6 L (8.4-10.2) mg/dL Total Protein 4.8 L (6.3-8.2) g/dL Albumin 2.2 L (3.5-5.0) g/dL Microbiology - Last 24 Hours (Table) 06/24/18 21:38 Blood Culture - Preliminary Blood No Growth after 48 hours 06/24/18 12:03 Urine Culture - Final Urine,Voided <Twin Steve - Last Filed: 06/27/18 17:45> Subjective As above. Patient states gradually throughout the day her pain is increased. It is not approaching where her pain was when she presented to the hospital 3 days ago at this point. She states she did have a small stool. Low-grade fever present and leukocytosis persists. Remains on IV antibiotics. Pathology from colonoscopy yesterday is pending. Case discussed with GI and oncology. Colonic stent placement favored at this point. GI locally not able to perform that pro cedure and for that reason patient being transferred to [facility]. Clinical scenario discussed in detail with the patient. The acute onset of her pain on Tuesday while trying to have a bowel movement certainly raises the suspicion of a focal perforation of the suspected colon neoplasm. Short-term follow-up CAT scan to evaluate for progressive infection given the leukocytosis reviewed with her. Patient and her mother asked a few questions regarding the stent and potential future surgical options and these were answered to the best of my ability. Objective - Vital Signs Vital signs: Vital Signs Temp 98.1 F 06/27/18 15:57 Pulse 104 H 06/27/18 15:57 Resp 18 06/27/18 15:57 BP 110/64 06/27/18 15:57 Pulse Ox 95 06/27/18 15:57 Intake & Output 06/26/18 06/27/18 06/27/18 18:59 06:59 18:59 Intake Total 540 1300 Output Total 600 Balance -60 1300 Weight 94.7 kg Intake: IV 300 Intake, IV Titration 1300 Amount Sodium Chloride 0.9% 1, 1200 000 ml @ 150 mls/hr IV . Q6H40M NERI Rx#:[id number] metroNIDAZOLE-NS PMX 500 100 mg In Saline 1 100ml.bag @ 100 mls/hr IVPB Q8HR NERI Rx#:[id number] Oral 240 Output: Urine 600 Other: Voiding Method Toilet Toilet # Voids 1 # Bowel Movements 3 - Labs CBC & Chem 7: 06/27/18 06:19 06/27/18 06:19 Labs: Abnormal Lab Results - Last 24 Hours (Table) 06/26/18 06/26/18 06/27/18 Range/Units 06:36 06:36 06:19 WBC 22.3 H (3.8-10.6) k/uL RBC 3.47 L (3.80-5.40) m/uL Hgb 8.0 L (11.4-16.0) gm/dL Hct 27.0 L (34.0-46.0) % MCV 77.7 L (80.0-100.0) fL MCH 22.9 L (25.0-35.0) pg MCHC 29.5 L (31.0-37.0) g/dL RDW 22.7 H (11.5-15.5) % Plt Count 489 H (150-450) k/uL Neutrophils # 19.7 H (1.3-7.7) k/uL Neutrophils # (Manual) 27.90 H (1.3-7.7) k/uL Sodium 133 L (137-145) mmol/L Carbon Dioxide 19 L (22-30) mmol/L BUN 19 H (7-17) mg/dL Glucose 135 H (74-99) mg/dL Calcium 8.0 L (8.4-10.2) mg/dL Total Protein (6.3-8.2) g/dL Albumin (3.5-5.0) g/dL 06/27/18 Range/Units 06:19 WBC (3.8-10.6) k/uL RBC (3.80-5.40) m/uL Hgb (11.4-16.0) gm/dL Hct (34.0-46.0) % MCV (80.0-100.0) fL MCH (25.0-35.0) pg MCHC (31.0-37.0) g/dL RDW (11.5-15.5) % Plt Count (150-450) k/uL Neutrophils # (1.3-7.7) k/uL Neutrophils # (Manual) (1.3-7.7) k/uL Sodium 133 L (137-145) mmol/L Carbon Dioxide (22-30) mmol/L BUN (7-17) mg/dL Glucose (74-99) mg/dL Calcium 7.6 L (8.4-10.2) mg/dL Total Protein 4.8 L (6.3-8.2) g/dL Albumin 2.2 L (3.5-5.0) g/dL Microbiology - Last 24 Hours (Table) 06/24/18 21:38 Blood Culture - Preliminary Blood No Growth after 48 hours Assessment and Plan (1) Colonic mass Current Visit: Yes Status: Acute Code(s): K63.9 - DISEASE OF INTESTINE, UNSPECIFIED SNOMED Code(s): 606799369
--- NOTE | 2018-06-27 11:50 | P.PN ---
Subjective Progress Note Date: 06/27/18 Principal diagnosis: Abdominal pain abnormal CT change in bowel habits Status post EGD colonoscopy near completely obstructing rectal mass biopsies pending. Resting in chair hospital transfer to [facility]. No abdominal complaints. Afebrile. No bleeding. Objective - Vital Signs Vital signs: Vital Signs Temp 99.1 F 06/27/18 11:16 Pulse 108 H 06/27/18 11:37 Resp 18 06/27/18 11:16 BP 99/61 06/27/18 11:16 Pulse Ox 99 06/27/18 11:16 Intake & Output 06/26/18 06/27/18 06/27/18 18:59 06:59 18:59 Intake Total 540 1300 Output Total 600 Balance -60 1300 Weight 94.7 kg Intake: IV 300 Intake, IV Titration 1300 Amount Sodium Chloride 0.9% 1, 1200 000 ml @ 150 mls/hr IV . Q6H40M NERI Rx#:[id number] metroNIDAZOLE-NS PMX 500 100 mg In Saline 1 100ml.bag @ 100 mls/hr IVPB Q8HR NERI Rx#:[id number] Oral 240 Output: Urine 600 Other: Voiding Method Toilet Toilet # Voids 1 # Bowel Movements 3 - Exam General appearance: The patient is alert, oriented, in no acute distress. HET: Head is normocephalic and atraumatic. Pupils are equal and reactive. Oropharynx is clear without lesions. Neck: Supple without lymphadenopathy. Trachea midline. Heart: S1 S2. Regular rate and rhythm. Lungs: No crackles or wheezes are heard. Abdomen: Soft, nontender, nondistended with bowel sounds. No peritoneal signs. No palpable organomegaly or masses. Extremities: Normal skin color and turgor. No cyanosis, rash, ulceration, clubbing, or edema. Radial and pedal pulses are 2/4 bilaterally. Neurological: No focal deficits. Strength and sensation are grossly intact. - Labs CBC & Chem 7: 06/27/18 06:19 06/27/18 06:19 Labs: Abnormal Lab Results - Last 24 Hours (Table) 06/26/18 06/26/18 06/27/18 Range/Units 06:36 06:36 06:19 WBC 30.4 H 22.3 H (3.8-10.6) k/uL RBC 3.47 L (3.80-5.40) m/uL Hgb 9.3 L 8.0 L (11.4-16.0) gm/dL Hct 31.4 L 27.0 L (34.0-46.0) % MCV 79.0 L 77.7 L (80.0-100.0) fL MCH 23.4 L 22.9 L (25.0-35.0) pg MCHC 29.6 L 29.5 L (31.0-37.0) g/dL RDW 22.3 H 22.7 H (11.5-15.5) % Plt Count 622 H 489 H (150-450) k/uL Neutrophils # 19.7 H (1.3-7.7) k/uL Neutrophils # (Manual) 27.90 H (1.3-7.7) k/uL Sodium 133 L (137-145) mmol/L Carbon Dioxide 19 L (22-30) mmol/L BUN 19 H (7-17) mg/dL Glucose 135 H (74-99) mg/dL Calcium 8.0 L (8.4-10.2) mg/dL Total Protein (6.3-8.2) g/dL Albumin (3.5-5.0) g/dL 06/27/18 Range/Units 06:19 WBC (3.8-10.6) k/uL RBC (3.80-5.40) m/uL Hgb (11.4-16.0) gm/dL Hct (34.0-46.0) % MCV (80.0-100.0) fL MCH (25.0-35.0) pg MCHC (31.0-37.0) g/dL RDW (11.5-15.5) % Plt Count (150-450) k/uL Neutrophils # (1.3-7.7) k/uL Neutrophils # (Manual) (1.3-7.7) k/uL Sodium 133 L (137-145) mmol/L Carbon Dioxide (22-30) mmol/L BUN (7-17) mg/dL Glucose (74-99) mg/dL Calcium 7.6 L (8.4-10.2) mg/dL Total Protein 4.8 L (6.3-8.2) g/dL Albumin 2.2 L (3.5-5.0) g/dL Microbiology - Last 24 Hours (Table) 06/24/18 21:38 Blood Culture - Preliminary Blood No Growth after 48 hours 06/24/18 12:03 Urine Culture - Final Urine,Voided Assessment and Plan (1) Colonic mass Narrative/Plan: Daily obstructing colonic mass status post EGD colonoscopy biopsies pending. Current Visit: Yes Status: Acute Code(s): K63.9 - DISEASE OF INTESTINE, UNSPECIFIED SNOMED Code(s): 988328904 (2) Abdominal pain Current Visit: Yes Status: Acute Code(s): R10.9 - UNSPECIFIED ABDOMINAL PAIN SNOMED Code(s): 99756275 Plan: 1. General surgical consultation recommendations appreciated. Advised transfer to tertiary care center/[facility] for colonic stent evaluation. Assessment and plan a care discussed with Dr. Rivera
[2018-06-27] MEDS: MORPHINE SULFATE 4 MG/ML SYRINGE IV PRN (13:34)
--- NOTE | 2018-06-27 14:33 | P.DS ---
Providers Date of admission: 06/25/18 13:57 Expected date of discharge: 06/27/18 Attending physician: Grzegorz Bah MD Consults: 06/24/18 12:00 Consult Physician Routine Consulting Provider: Gilbert Rivera Consult Reason/Comments: colon mass Do you want consulting provider notified?: Yes 06/24/18 12:01 Consult Physician Routine Consulting Provider: Carlton Garrido Consult Reason/Comments: multiple intrabdominal masses Do you want consulting provider notified?: Yes 06/24/18 13:00 Consult Physician Routine Consulting Provider: Deloris Sherman Consult Reason/Comments: known to doctor Do you want consulting provider notified?: Yes 06/26/18 12:19 Consult Physician Routine Consulting Provider: Twin Steve Consult Reason/Comments: abdominal mass Do you want consulting provider notified?: Already Contacted 06/26/18 14:46 Consult Physician Routine Consulting Provider: Zoey Seymour Consult Reason/Comments: sepsis Do you want consulting provider notified?: Yes Primary care physician: Lino Rose - Kristy Diagnosis(es) (1) Abdominal pain Current Visit: Yes Status: Acute (2) Abdominal mass Current Visit: Yes Status: Acute (3) Sepsis Current Visit: Yes Status: Acute (4) Colitis Current Visit: Yes Status: Acute (5) Chronic anemia Current Visit: Yes Status: Acute (6) Colon obstruction Current Visit: Yes Status: Acute Hospital Course: The patient is a 43-year-old female that was admitted with acute abdominal pain and was found to have a suspicious colonic abdominal mass involving the sigmoid colon with direct extension into the pelvis and resultant left hydronephrosis with encasement of the EUFEMIA. She was also found to have sepsis secondary to colitis versus necrotic pelvic lymphadenopathy, the patient was normotensive, but tachycardic and was started on empiric IV antibiotics with Rocephin and Flagyl after presenting with a white count of 24,000. GI was consulted and EGD and colonoscopy were performed, EGD showed mild antral gastritis while colonoscopy revealed a large obstructing colonic mass approximately 20 cm from the anal verge biopsies were taken, There was concern for primary colonic adenocarcinoma with possible metastasis as initial CT abdomen and pelvis indicated a hypoattenuating lesion in the right lobe of the liver that was likely either an atypical hemangioma versus metastasis hematology oncology was consulted, and metastatic workup was initiated. CEA was elevated at 23 and CA 19-9 was normal at 19.6. Bone scan and CT of the chest was negative. Patient continued to have worsening leukocytosis and ID was consulted for antibiotic guidance, the patient was subsequently started on his IV Zosyn and continued on Flagyl. The patient was seen by general surgery Dr. Steve and was contemplating diverting ostomy ultimately decided on colonic stent placement which we do not perform here. Plans are made to transfer the patient to a tertiary level of care at [facility], transfer team was contacted and Dr. dutta was accepting physician. The patient was subsequently transferred there in stable condition. This discharge process took approximately 35 minutes Focused exam Abdominal: Soft nontender nondistended normoactive bowel sounds all 4 quadrants nonacute abdomen, Patient Condition at Discharge: Poor Plan - Discharge Summary New Discharge Prescriptions: No Action Meloxicam 15 mg PO DAILY Biotin 5 mg PO DAILY Ibuprofen [Motrin] 800 mg PO Q8H Discharge Medication List Biotin 5 mg PO DAILY 05/15/18 [History] Meloxicam 15 mg PO DAILY 05/15/18 [History] Ibuprofen [Motrin] 800 mg PO Q8H 06/24/18 [History] Follow up Appointment(s)/Referral(s): Twin Steve MD [Medical Doctor] - 3 Weeks Evelyn Warren MD [STAFF PHYSICIAN] - 1 Week Lino Rose MD [Primary Care Provider] - 1-2 days Gilbert Rivera MD [STAFF PHYSICIAN] - 1 Week
[2018-06-27] MEDS ORDERED: KETOROLAC 30 MG/ML 1 ML VIAL IVP STA (16:01)
[2018-06-27] MEDS ORDERED: ACETAMINOPHEN TAB 500 MG TAB PO STA (16:02)
[2018-06-27 16:08] VITALS: BP 110/64; PULSE 104; TEMP 98.1
--- NOTE | 2018-06-27 16:42 | PN ---
PROGRESS NOTE DATE OF SERVICE: 06/27/2018. REASON FOR FOLLOW UP: Leukocytosis, source. INTERVAL HISTORY: The patient is currently afebrile. She did have a low-grade fever of 99.9 last night. The patient is breathing comfortably. The left lower abdominal pain is slightly decreased intensity. No nausea, no vomiting. Did have some loose stools. PHYSICAL EXAMINATION: Blood pressure 99/51 with a pulse of 99, temperature 99.1. She is 99% on 3 L nasal cannula. General description is a middle-aged female up in the chair in no distress. Respiratory system: Unlabored breathing. Clear to auscultation anteriorly. Heart S1, S2. Regular rate and rhythm. ABDOMEN: Soft. Minimally tender. No guarding or rigidity. Extremities: No edema of the feet. LABS: Hemoglobin 8, white count 22.3, BUN of 11, creatinine 0.57. Blood culture has been negative. DIAGNOSTIC IMPRESSION AND PLAN: Patient admitted to hospital with abdominal pain. The patient did have a colon mass with concern for likely malignancy and evidence of possible necrotic lymphadenopathy. The patient white count did show a downward trend with addition of Zosyn that will be continued for now. We will monitor the clinical course closely. Continue supportive care. MMODL / IJN: [id number] /
--- NOTE | 2018-06-27 18:07 | P.PN ---
Subjective Progress Note Date: 06/27/18 Principal diagnosis: Multiple Abdominal Masses, New colonic Mass Discussed case in detail with Surgery and GI today, PLan to send to [facility] for Evaluation Stent placement Objective - Vital Signs Vital signs: Vital Signs Temp 98.1 F 06/27/18 15:57 Pulse 104 H 06/27/18 15:57 Resp 18 06/27/18 15:57 BP 110/64 06/27/18 15:57 Pulse Ox 95 06/27/18 15:57 Intake & Output 06/26/18 06/27/18 06/27/18 18:59 06:59 18:59 Intake Total 540 1300 Output Total 600 Balance -60 1300 Weight 94.7 kg Intake: IV 300 Intake, IV Titration 1300 Amount Sodium Chloride 0.9% 1, 1200 000 ml @ 150 mls/hr IV . Q6H40M NERI Rx#:[id number] metroNIDAZOLE-NS PMX 500 100 mg In Saline 1 100ml.bag @ 100 mls/hr IVPB Q8HR NERI Rx#:[id number] Oral 240 Output: Urine 600 Other: Voiding Method Toilet Toilet # Voids 1 # Bowel Movements 3 - Exam Gen: Alert, NAD Neck: Supple No supraclavicular, cervical or axillary adenopathy Heart: Tachy, Reg Lungs: CTA: Bilat, no increased effort Abdomen: Soft, Tender to palpation Extremities: No rashes or edema Neuro: No sensory or motor deficits. - Labs CBC & Chem 7: 06/27/18 06:19 06/27/18 06:19 Labs: Abnormal Lab Results - Last 24 Hours (Table) 06/27/18 06/27/18 Range/Units 06:19 06:19 WBC 22.3 H (3.8-10.6) k/uL RBC 3.47 L (3.80-5.40) m/uL Hgb 8.0 L (11.4-16.0) gm/dL Hct 27.0 L (34.0-46.0) % MCV 77.7 L (80.0-100.0) fL MCH 22.9 L (25.0-35.0) pg MCHC 29.5 L (31.0-37.0) g/dL RDW 22.7 H (11.5-15.5) % Plt Count 489 H (150-450) k/uL Neutrophils # 19.7 H (1.3-7.7) k/uL Sodium 133 L (137-145) mmol/L Calcium 7.6 L (8.4-10.2) mg/dL Total Protein 4.8 L (6.3-8.2) g/dL Albumin 2.2 L (3.5-5.0) g/dL Microbiology - Last 24 Hours (Table) 06/24/18 21:38 Blood Culture - Preliminary Blood No Growth after 48 hours Assessment and Plan (1) Abdominal mass Current Visit: Yes Status: Acute Code(s): R19.00 - INTRA-ABD AND PELVIC SWELLING, MASS AND LUMP, UNSP SITE SNOMED Code(s): 692224148 (2) Abdominal pain Current Visit: Yes Status: Acute Code(s): R10.9 - UNSPECIFIED ABDOMINAL PAIN SNOMED Code(s): 40421970 (3) Chronic anemia Current Visit: Yes Status: Acute Code(s): D64.9 - ANEMIA, UNSPECIFIED SNOMED Code(s): 858985625 (4) Colitis Current Visit: Yes Status: Acute Code(s): K52.9 - NONINFECTIVE GASTROENTERITIS AND COLITIS, UNSPECIFIED SNOMED Code(s): 20812300 (5) Leukocytosis Current Visit: Yes Status: Acute Code(s): D72.829 - ELEVATED WHITE BLOOD CELL COUNT, UNSPECIFIED SNOMED Code(s): 595536559 Plan: Assessment and Recommendations: Leukocytosis: - Reactive to Inflammatory Colitis, Infection Microcytic Anemia: - Acute on Chronic Blood Loss Anemia GI (hx ulcerative colitis?) and Heavy Menstration - Possible Component of Malignancy, further workup needed - Anemia work-up ordered - Transfusion support hgb less than 7 Intra-abdominal masses on CT: - Ca125 no elevation, CEA with some elevation - Status POst EGD and Colonoscopy with almost complete obstructing mass - CT Chest and Bone scan for full work-up - Will Cancel IR percutaneous biopsy in anticipation of pathology positive for metastatic cancer from colonoscopy - Discussed case with Dr. Steve, Stent versus Diversion with history of constipation PLan: As Above - Send to [facility] for evaluation of stent placement therefore systemic treatment can be expeditied Margarita SAMUELSP Physician Attest: I have completed the full history and physical and agree with above impression and plan, dictated as a scribe.
--- NOTE | 2018-06-29 11:24 | CDI ---
Documentation Clarification Form Date: 06/29/18 From: TEO Miller Phone: If you have question, contact Devi Lee at [phone] M-F 8:30 am to 6pm Admit Date: 06/25/2018 1:57:00 PM Patient Name: Dayana Barrios Visit Number: [id number] Discharge Date: 06/27/2018 6:39:00 PM ATTENTION: The Clinical Documentation Specialists (CDI) and [facility] Coding Staff appreciate your assistance in clarifying documentation. Please respond to the clarification below the line at the bottom and electronically sign. The CDI & [facility] Coding staff will review the response and follow-up if needed. Please note: Queries are made part of the Legal Health Record. If you have any questions, please contact the author of this message via ITS. Dr. Yasmany Werner Patient with abdominal pain and intermittent rectal bleeding for a number of months. Colonoscopy was performed and showed a near completely obstructing rectal mass. Biopsies were taken. 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 Yes I agree with the diagnosis on pathology which was received AFTER the patient was discharged. Patient will have this diagnosis going forward MTDD
== END 2018-06-27 18:39 | disposition short-term general hospital (02) | DRG 872 ==
LOC: EC 05:40 → INTOOBSV 07:47 → 3NMEDONC 07:47 → OBSVTOIN 07:47 → 3NMEDONC 09:26 → 3SCARD 06-25 01:41 → OBSVTOIN 06-25 13:57
PROVIDERS: ADMIT Internal Medicine; ATTEND Internal Medicine
DX: A41.9 Sepsis, unspecified organism (principal); C20 Malignant neoplasm of rectum; K52.9 Noninfective gastroenteritis and colitis, unspecified; K29.70 Gastritis, unspecified, without bleeding; K31.7 Polyp of stomach and duodenum; E87.5 Hyperkalemia
CPT/HCPCS: 36415; 43239; 45380; 71045; 71260; 74022; 74177; 76856; 78306; 80048; 80053; 81001; 82150; 82378; 83605; 83615; 83690; 83735; 84100; 84550; 85025; 85027; 85379; 85610; 85730; 86301; 86304; 87040; 87086; 88305; 93005; 94640; 96361; 96365; 96367; 96375; 96376; 99285

== ENCOUNTER 2020-04-13 19:04 | Emergency (ER) | payer BC, OTHER ==
[2020-04-13] MEDS ORDERED: ONDANSETRON 4 MG/2 ML VIAL IVP STA (19:31)
[2020-04-13] MEDS ORDERED: SODIUM CHLORIDE 0.9% 500 ML 500 ML IV STA (19:31)
[2020-04-13] MEDS ORDERED: SODIUM CHLORIDE 0.9% 1,000 ML IV STA (19:31)
[2020-04-13] MEDS ORDERED: PANTOPRAZOLE 40 MG/10 ML VIAL IVP STA (19:32)
[2020-04-13] MEDS ORDERED: MORPHINE SULFATE 2 MG/ML SYRINGE IVP STA (19:34)
[2020-04-13 20:06] LABS: Anisocytosis Slight; Basophils % (A) 0 %; Eosinophils # (A) 0.1 k/uL (0-0.7); Eosinophils % (A) 1 %; HCT 34.1 % (34.0-46.0); HGB 10.6 gm/dL (11.4-16.0); Hypochromasia Marked; Lymphocytes # (A) 2.5 k/uL (1.0-4.8); Lymphocytes % (A) 30 %; MCH 23.5 pg (25.0-35.0); MCHC 30.9 g/dL (31.0-37.0); MCV 75.9 fL (80.0-100.0); Mean Platelet Volume 7.3; Microcytosis Moderate; Monocytes # (A) 0.7 k/uL (0-1.0); Monocytes % (A) 8 %; Neutrophils % (A) 58 %; Platelet Count 452 k/uL (150-450); Poikilocytosis Slight; RDW 19.2 % (11.5-15.5); WBC 8.5 k/uL (3.8-10.6)
[2020-04-13 20:15] LABS: INR 1.1 (<1.2); Partial Thromboplastin Time 22.5 sec (22.0-30.0); Prothrombin Time 11.4 sec (9.0-12.0)
[2020-04-13 20:19] LABS: ALT 15 U/L (4-34); AST 35 U/L (14-36); African American GFR (CKD) >90 (>60 ml/min/1.73 sqM); Albumin 4.5 g/dL (3.5-5.0); Alkaline Phosphatase 80 U/L (38-126); Anion Gap 12 mmol/L; Blood Urea Nitrogen 12 mg/dL (7-17); Calcium 9.8 mg/dL (8.4-10.2); Carbon Dioxide 25 mmol/L (22-30); Chloride 103 mmol/L (98-107); Glucose 104 mg/dL (74-99); Lipase 61 U/L (23-300); Non-African American GFR(CKD) >90 (>60 ml/min/1.73 sqM); Potassium 4.1 mmol/L (3.5-5.1); Sodium 140 mmol/L (137-145); Total Bilirubin 0.8 mg/dL (0.2-1.3); Total Protein 8.4 g/dL (6.3-8.2)
--- NOTE | 2020-04-13 20:52 | CT ---
EXAMINATION TYPE: CT brain wo con DATE OF EXAM: 04/13/2020 COMPARISON: None HISTORY: left sided weakness CT DLP: 1089 mGycm Automated exposure control for dose reduction was used. There is rounded 1.5 cm density left posterior temporal lobe with ring appearance. There is some surr ounding edema. There is no significant mass effect. There is no midline shift. There is no evidence o f intracranial hemorrhage. There is 1.6 cm area of hypodensity involving the brainstem on the left side at the level of the bette . This could be a mass. The sella turcica appears normal. Calvarium is intact. IMPRESSION: Hypodense lesion in the left side of the brainstem. Ring density in the left posterior temporal lobe with surrounding edema. Tumor should be considered. Contrast CT scan or MR scan recommended for further evaluation.
--- NOTE | 2020-04-13 21:03 | CT ---
EXAMINATION TYPE: CT abdomen pelvis w con DATE OF EXAM: 04/13/2020 COMPARISON: 06/24/2018 HISTORY: left sided pain and weakness CT DLP: 2092.4 mGycm Automated exposure control for dose reduction was used. CONTRAST: Performed with IV Contrast, patient injected with 100 mL of Isovue 370. Images obtained from the diaphragm to the floor the pelvis with IV contrast. Lung bases are clear. There is no pleural effusion. Heart size is normal. Exam limited somewhat by pa tient size and motion artifact. There is poorly marginated 3 cm hypodense area in the superior right lobe of the liver. Spleen is intact. Gallbladder appears intact. There is no evidence of pancreatic m ass. The stomach is intact. There is normal enhancement of the kidneys. There is no hydronephrosis. Delayed images show normal re nal excretion. The ureters are not dilated. There is no adrenal mass. There is apparent transverse colostomy. There is no evidence of a bowel obstruction. There is a large mixed density mass on the left side of the uterine fundus. This measures 15 cm in maximum dimension. The uterus is shifted slightly to the right side. Uterus is enlarged with length of 13 cm. There is no free fluid in the pelvis. There is no retroperitoneal adenopathy. Appendix not definitely seen. Th ere are bilateral surgical clips in the pelvis that could be from tubal ligation. There is no inguina l hernia. Bladder distends smoothly. Lumbar spine is intact. Bony pelvis is intact. IMPRESSION: Very large pelvic mass on the left side could BE a large exophytic uterine fibroid significantly incr eased compared to old exam. There could be hemorrhage in the fibroid. Ovarian tumor not excluded. Lar ge bowel tumor not excluded. Low-density mass in the superior right lobe of the liver not well defined and could be a hemangioma. This appears to show some delayed enhancement on the old CT scan. Not changed in size.
--- NOTE | 2020-04-13 21:09 | CT ---
EXAMINATION TYPE: CT angio head neck DATE OF EXAM: 04/13/2020 COMPARISON: None HISTORY: weakness, left sided numbness CT DLP: 550.2 mGycm Automated exposure control for dose reduction was used. CONTRAST: Performed with IV Contrast, patient injected with 50cc mL of Isovue 370. There are 3-D post processed images. There is normal branching pattern of the great vessels on the aortic arch. There is borderline aneury sm of the ascending aorta measures 3.9 cm. There is no dissection. There is arterial flow in both sub clavian arteries. There is arterial flow in the common internal and external carotid arteries bilaterally. There is art erial flow in both vertebral arteries. There is no evidence of hemodynamic stenosis. There is no evid ence of carotid or vertebral artery aneurysm or dissection. There is wide patency of the carotid zia ry bifurcations. There is arterial flow in the vertebrobasilar artery system. There is arterial flow in the anterior m iddle and posterior cerebral arteries. I see no evidence of hemodynamic stenosis. There is no evidenc e of intracranial aneurysm or neovascularity. There is no mass effect. There is normal contrast opacification of the venous sinuses. IMPRESSION: Negative CT angiogram of the neck and brain. Borderline aneurysm of the ascending aorta.
[2020-04-13 21:16] VITALS: TEMP 98.3
[2020-04-13] MEDS ORDERED: levETIRAcetam IV 1,000 MG in SALINE 1 100ML.BAG IVPB STA (21:39)
[2020-04-13] MEDS ORDERED: levETIRAcetam IV 1,000 MG in SALINE 1 100ML.BAG IVPB SCH (21:45)
[2020-04-13] MEDS ORDERED: DEXAMETHASONE SOD PHOSPHATE 10 MG/ML 1 ML VIAL IV SCH (21:45)
--- NOTE | 2020-04-13 22:27 | ED ---
General Adult HPI - General Chief complaint: Neuro Symptoms/Deficit Stated complaint: rt sided weakness Time Seen by Provider: 04/13/20 19:22 Source: patient Mode of arrival: wheelchair - History of Present Illness Initial comments: This 45-year-old female presents with with a complaint of some right- sided paralysis which is been present for 2 days. They relate that they were on vacation out in [place] and her symptoms started but she refused to go to a local hospital there. She was able to make it back via flight to our area and came directly here. She notes inability to move her right upper extremity, right leg, has a right facial droop, and slurred speech. She denies any previous stroke or TIA. She does relate a history of colon cancer. She has been dealing with this for approximately 2 years. She previously was getting her care out of [facility] but recently transferred all of her care at [facility] and she currently sees Dr. Deleon. She relates that she has been told recently that the cancer spread to her lungs. She is also had possible spread to her liver at one point. In addition, she relates that she has not had any output out of her colostomy for the last 4 days. She denies any fevers, chills, chest pain, shortness of breath, or lower extremity swelling or pain. No other complaints or modifying factors. - Related Data Home Medications Medication Instructions Recorded Confirmed ALPRAZolam [Xanax] 0.5 mg PO DAILY PRN 04/13/20 04/13/20 Acetaminophen/Diphenhydramine 2 tab PO HS PRN 04/13/20 04/13/20 [Tylenol Pm Ex-Strength Caplet] [id number] 2 tab PO Q4HR PRN 04/13/20 04/13/20 [Excedrin] HYDROcodone/APAP 10-325MG [[place] 1 tab PO TID PRN 04/13/20 04/13/20 10-325] Allergies Allergy/AdvReac Type Severity Reaction Status Date / Time No Known Allergies Allergy Verified 04/13/20 21:22 Review of Systems ROS Statement: Those systems with pertinent positive or pertinent negative responses have been documented in the HPI. ROS Other: All systems not noted in ROS Statement are negative. Past Medical History Past Medical History: No Reported History Additional Past Medical History / Comment(s): microcytic anemia History of Any Multi-Drug Resistant Organisms: None Reported Past Surgical History: Tubal Ligation Additional Past Surgical History / Comment(s): Patient has had an endometrial ablation in [address] Veras. Past Anesthesia/Blood Transfusion Reactions: No Reported Reaction Past Psychological History: No Psychological Hx Reported Smoking Status: Never smoker Past Alcohol Use History: None Reported Past Drug Use History: None Reported - Past Family History Mother Family Medical History: Congestive Heart Failure (CHF), Diabetes Mellitus Father Family Medical History: Diabetes Mellitus Additional Family Medical History / Comment(s): lung cancer in aunt, who is a smoker General Exam - General Exam Comments Initial Comments: GENERAL: The patient is well nourished and well hydrated. VITAL SIGNS: Heart rate, blood pressure, respiratory rate reviewed as recorded in nurse's notes. EYES: Pupils are round and reactive. Extraocular movements are intact. No conjunctival / lid redness or swelling. ENT: No external evidence of injury, swelling, or ecchymosis. Airway is patent. Throat is clear. NECK: Nontender. No swelling or evidence of injury. No subcutaneous emphysema. Trachea is midline. No thyroid mass. HEART: Regular rate and rhythm. Good peripheral pulses. LUNGS/CHEST: Breath sounds clear and equal bilaterally. No rales, rhonchi, or wheezes. No ecchymosis, subcutaneous emphysema, or tenderness. ABDOMEN: There is upper midline abdominal tenderness with mass palpated. Colostomy bag present. No palpable masses or organomegaly. No peritoneal signs. No abdominal wall swelling or ecchymosis. EXTREMITIES: No extremity tenderness. Normal muscle tone and function. No thoracolumbar tenderness. NEUROLOGIC: A right facial droop is mildly present. There is mild slurring of speech. The patient has complete paralysis of her right upper extremity. There is near paralysis of her right lower extremity and she is only able to slightly move her right foot but is not able to lift her right leg off of the bed. There is decreased sensation noted to her right upper and right lower extremity as compared to the left. SKIN: No abrasions or ecchymosis is noted. No induration or masses noted. PSYCHIATRIC: Alert and oriented. Appropriate behavior and judgment. Course Vital Signs 04/13/20 04/13/20 04/13/20 19:08 20:45 21:45 Temperature 97.8 F 98.3 F Pulse Rate 106 H 91 67 Respiratory 18 20 18 Rate Blood Pressure 145/82 131/85 147/90 O2 Sat by Pulse 100 100 99 Oximetry Medical Decision Making - Medical Decision Making The patient was seen and examined. All diagnostics are reviewed. The hemoglobin is low at 10 but this is improved as compared to previous. The patient also had a computed tomography scan of the abdomen and pelvis was done showing evidence of a masslike lesion which apparently the radiologist thinks could be from the uterus. Old records to her relate that this is previously been worked up and is likely a colon cancer. The radiologist did not note any definitive obstruction. The patient also had a computed tomography scan of the brain which is noncontrasted and this does show 2 lesions which are suspicious for mass, one that is near the brainstem. There is associated edema. The CTA of the neck and brain does not show any acute abnormalities. Case is discussed with Dr. Gordon from interventional neurology and he recommends Decadron 4 mg IV every 8 hours as well as Keppra intravenously. He feels as though the patient would benefit from transfer to a center that his neurosurgical coverage. He also recommends ICU admission. The patient is agreeable to transfer to [facility]. Case is discussed with Dr. Manzo from the ER and he is agre eable with admission as well. Transfer paperwork is completed. Overall, it is felt as though the patient does have a very poor prognosis as it appears that she does have significant cancer with multiple metastases and now complete right-sided paralysis suspected brain tumors. She does relate that she still wants all treatment necessary to help make her better. - Lab Data Result diagrams: 04/13/20 19:51 04/13/20 19:51 Lab Results 04/13/20 04/13/20 04/13/20 Range/Units 19:51 19:51 19:51 WBC 8.5 (3.8-10.6) k/uL RBC 4.50 (3.80-5.40) m/uL Hgb 10.6 L (11.4-16.0) gm/dL Hct 34.1 (34.0-46.0) % MCV 75.9 L (80.0-100.0) fL MCH 23.5 L (25.0-35.0) pg MCHC 30.9 L (31.0-37.0) g/dL RDW 19.2 H (11.5-15.5) % Plt Count 452 H (150-450) k/uL MPV 7.3 Neutrophils % 58 % Lymphocytes % 30 % Monocytes % 8 % Eosinophils % 1 % Basophils % 0 % Neutrophils # 5.0 (1.3-7.7) k/uL Lymphocytes # 2.5 (1.0-4.8) k/uL Monocytes # 0.7 (0-1.0) k/uL Eosinophils # 0.1 (0-0.7) k/uL Basophils # 0.0 (0-0.2) k/uL Hypochromasia Marked Poikilocytosis Slight Anisocytosis Slight Microcytosis Moderate PT 11.4 (9.0-12.0) sec INR 1.1 (<1.2) APTT 22.5 (22.0-30.0) sec Sodium 140 (137-145) mmol/L Potassium 4.1 (3.5-5.1) mmol/L Chloride 103 (98-107) mmol/L Carbon Dioxide 25 (22-30) mmol/L Anion Gap 12 mmol/L BUN 12 (7-17) mg/dL Creatinine 0.62 (0.52-1.04) mg/dL Est GFR (CKD-EPI)AfAm >90 (>60 ml/min/1.73 sqM) Est GFR (CKD-EPI)NonAf >90 (>60 ml/min/1.73 sqM) Glucose 104 H (74-99) mg/dL Calcium 9.8 (8.4-10.2) mg/dL Total Bilirubin 0.8 (0.2-1.3) mg/dL AST 35 (14-36) U/L ALT 15 (4-34) U/L Alkaline Phosphatase 80 (38-126) U/L Troponin I (0.000-0.034) ng/mL Total Protein 8.4 H (6.3-8.2) g/dL Albumin 4.5 (3.5-5.0) g/dL Lipase 61 (23-300) U/L 04/13/20 Range/Units 19:51 WBC (3.8-10.6) k/uL RBC (3.80-5.40) m/uL Hgb (11.4-16.0) gm/dL Hct (34.0-46.0) % MCV (80.0-100.0) fL MCH (25.0-35.0) pg MCHC (31.0-37.0) g/dL RDW (11.5-15.5) % Plt Count (150-450) k/uL MPV Neutrophils % % Lymphocytes % % Monocytes % % Eosinophils % % Basophils % % Neutrophils # (1.3-7.7) k/uL Lymphocytes # (1.0-4.8) k/uL Monocytes # (0-1.0) k/uL Eosinophils # (0-0.7) k/uL Basophils # (0-0.2) k/uL Hypochromasia Poikilocytosis Anisocytosis Microcytosis PT (9.0-12.0) sec INR (<1.2) APTT (22.0-30.0) sec Sodium (137-145) mmol/L Potassium (3.5-5.1) mmol/L Chloride (98-107) mmol/L Carbon Dioxide (22-30) mmol/L Anion Gap mmol/L BUN (7-17) mg/dL Creatinine (0.52-1.04) mg/dL Est GFR (CKD-EPI)AfAm (>60 ml/min/1.73 sqM) Est GFR (CKD-EPI)NonAf (>60 ml/min/1.73 sqM) Glucose (74-99) mg/dL Calcium (8.4-10.2) mg/dL Total Bilirubin (0.2-1.3) mg/dL AST (14-36) U/L ALT (4-34) U/L Alkaline Phosphatase (38-126) U/L Troponin I <0.012 (0.000-0.034) ng/mL Total Protein (6.3-8.2) g/dL Albumin (3.5-5.0) g/dL Lipase (23-300) U/L Disposition Clinical Impression: Colon cancer, Acute abdominal pain, Facial droop, Brain mass, Slurred speech, Chronic anemia, Paralysis Disposition: OTHER INSTITUTION NOT DEFINED Condition: Fair Is patient prescribed a controlled substance at d/c from ED?: No Referrals: Yaima Deleon MD [Primary Care Provider] - 1-2 days Time of Disposition: 22:33 Decision Date: 04/13/20 Decision Time: 22:33 - Out of Hospital Transfer - Req. Specs Out of Hospital Transfer - Requested Specifics: Other Emergency Center ([facility])
[2020-04-13 22:39] VITALS: BP 136/88; PULSE 88; RESP 20
== END 2020-04-13 22:41 | disposition other institution (70) ==
LOC: EC 19:04
DX: G81.91 Hemiplegia, unspecified affecting right dominant side (principal); G93.9 Disorder of brain, unspecified; R29.810 Facial weakness; R47.81 Slurred speech; C18.9 Malignant neoplasm of colon, unspecified; D64.9 Anemia, unspecified; Z98.51 Tubal ligation status
CPT/HCPCS: 36415; 93005; 80053; 83690; 84484; 85025; 85610; 85730; 70496; 70450; 70498; 74177; 99285; 96374; 96375 ×4; 96361 ×3; J1100; J2405; J2270; J1953; C9113; Q9967